=== PATIENT | male | born 1960 | race Caucasian/White ===

== ENCOUNTER → 2017-09-04 | Outpatient (CLI) | payer OTHER ==
[~2017-09-04] MED LIST: APR25 PO; CLOB-65 EXT; HYDR25TA4 PO; LISI40TA PO; METO50TA17 PO; MOME200A INH; NRV5 PO; Oxycodone/Acetaminophen PO; TEMA-79 PO
[2017-09-04 11:08] LABS: BASO ABS # 0.08 K/uL (0-0.2); EOS % 4.2 %; EOS ABS # 0.33 K/uL (0-0.5); HEMATOCRIT 44.4 % (42-52); HEMOGLOBIN 15.6 g/dL (14.0-18.0); IG# 0.02 K/uL (0.00-0.02); LYMPH ABS # 2.45 K/uL (1.2-3.4); MEAN CELL VOLUME 96.5 fL (80-100); MEAN CORPUSCULAR HEMOGLOBIN 33.9 pg (25-34); MEAN CORPUSCULAR HGB CONC 35.1 g/dl (32-36); MEAN PLATELET VOLUME 11.2 fL (7.4-10.4); MONO % 10.1 %; NEUT % 53.4 %; NEUT ABS # 4.22 K/uL (1.4-6.5); PLATELET COUNT 271 K/uL (130-400); RED CELL DISTRIBUTION WIDTH CV 12.6 % (11.5-14.5); RED CELL DISTRIBUTION WIDTH SD 44.2 fL (36.4-46.3)
[2017-09-04 11:32] LABS: ALBUMIN 3.4 gm/dl (3.4-5.0); ALT/SGPT 40 U/L (12-78); AST/SGOT 22 U/L (15-37); BLOOD UREA NITROGEN 15 mg/dl (7-18); CALCIUM 8.7 mg/dl (8.5-10.1); CARBON DIOXIDE 26 mmol/L (21-32); CHOLESTEROL 158 mg/dl (0-200); GLUCOSE 153 mg/dl (70-99); POTASSIUM 4.1 mmol/L (3.5-5.1); SODIUM 138 mmol/L (136-145)
[2017-09-04 11:35] LABS: ALKALINE PHOSPHATASE 96 U/L (45-117); TOTAL PROTEIN 7.8 gm/dl (6.4-8.2)
[2017-09-04 12:22] LABS: HEMOGLOBIN A1C 5.8 % (4.5-5.6)
== END | disposition home or self-care (01) ==
LOC: C.LABBC 07:04
PROVIDERS: ATTEND Internal Medicine
DX: G62.9 Polyneuropathy, unspecified (principal)

== ENCOUNTER 2017-10-08 11:27 | Emergency (ER) | payer OTHER ==
[~2017-10-08] VITALS: Ht 172.7 cm; Wt 117.0 kg
[2017-10-08 11:34] VITALS: Ht 172.7 cm; Wt 117.0 kg
[2017-10-08] MEDS ORDERED: AMLO-114 PO (11:55)
[2017-10-08] MEDS ORDERED: AMIT50TA3 PO (11:55)
[2017-10-08] MEDS ORDERED: GABA-113 PO (11:55)
[2017-10-08] MEDS ORDERED: PANT40TA PO (11:55)
[2017-10-08] MEDS ORDERED: ONDANSETRON INJ 2 MG/ML 2 ML VIAL IV STA (12:08)
[2017-10-08] MEDS ORDERED: ASPIRIN 81 MG CHEW PO STA (12:08)
[2017-10-08] MEDS ORDERED: SODIUM CHLORIDE 0.9% 1000ML 1,000 ML IV STA (12:08)
[2017-10-08] MEDS ORDERED: NITROGLYCERIN 0.4 MG SL PER TAB CHARGE SL PRN ×2 (12:15→14:30)
[2017-10-08 12:25] LABS: ALBUMIN 3.9 gm/dl (3.4-5.0); ALT/SGPT 46 U/L (12-78); AST/SGOT 26 U/L (15-37); BLOOD UREA NITROGEN 15 mg/dl (7-18); CALCIUM 9.1 mg/dl (8.5-10.1); CARBON DIOXIDE 23 mmol/L (21-32); GLUCOSE 142 mg/dl (70-99); LIPASE 117 U/L (73-393); SODIUM 137 mmol/L (136-145)
[2017-10-08 12:28] LABS: ALKALINE PHOSPHATASE 69 U/L (45-117); TOTAL PROTEIN 8.5 gm/dl (6.4-8.2)
--- NOTE | 2017-10-08 12:33 | DIAGNOSTIC IMAGING REPORT ---
SINGLE VIEW CHEST CLINICAL HISTORY: Atypical chest pain. FINDINGS: An AP, portable, upright chest radiograph is compared to study dated 05/17/2016 and correlated with chest CT dated 05/29/2016. The examination is degraded by portable technique, apical lordotic positioning, and patient rotation. The heart is markedly enlarged. The pulmonary vasculature is noncongested. Chronic interstitial thickening is similar to previous. Bibasilar atelectasis is observed. There is no evidence of superimposed airspace consolidation or large pleural effusion. No pneumothorax is seen. The skeletal structures are osteopenic. The bony thorax is grossly intact. IMPRESSION: Cardiomegaly with no acute cardiopulmonary abnormality. Electronically signed by: David Villegas M.D. 10/08/2017 12:31 PM Dictated Date/Time: 10/08/2017 12:30 PM
[2017-10-08 12:35] LABS: BASO ABS # 0.09 K/uL (0-0.2); EOS % 3.1 %; EOS ABS # 0.29 K/uL (0-0.5); HEMATOCRIT 46.4 % (42-52); HEMOGLOBIN 16.4 g/dL (14.0-18.0); IG# 0.02 K/uL (0.00-0.02); LYMPH % 29.2 %; LYMPH ABS # 2.71 K/uL (1.2-3.4); MEAN CELL VOLUME 95.3 fL (80-100); MEAN CORPUSCULAR HEMOGLOBIN 33.7 pg (25-34); MEAN CORPUSCULAR HGB CONC 35.3 g/dl (32-36); MEAN PLATELET VOLUME 10.5 fL (7.4-10.4); MONO ABS # 1.02 K/uL (0.11-0.59); NEUT % 55.5 %; NEUT ABS # 5.15 K/uL (1.4-6.5); PLATELET COUNT 282 K/uL (130-400); RED CELL DISTRIBUTION WIDTH CV 12.4 % (11.5-14.5); WHITE BLOOD COUNT 9.28 K/uL (4.8-10.8)
--- NOTE | 2017-10-08 12:44 | EMERGENCY ROOM VISIT NOTE ---
ED Visit Note First contact with patient: 11:56 Pt evaluated emergently due to possible unresponsive episode. Pt initially presented to me by ALLEN as possible cardiac evaluation vs anxiety reaction. I was called to the room due to pt appearing to be unresponsive. Pt noted to have mild tremor to b/l UE, however would still follow commands during this time. Pt with hypotension compared to prior and IVF started. Pt moved to A1 after notification of charge nurse regarding change condition. BP began to improve and pt emergently sent to CT for additional imaging of head and trunk. Concern for evolving dissection, aaa, cva, seizure. Upon return from CT to A1, pt noted to have asymmetric UE strength and left facial droop. Pt still would follow some commands but slow to open eyes. VS improved. ALLEN called to update me and upon my evaluation at bedside these findings were confirmed and Code Stroke called. CT's all negative for acute pathology. ALLEN discussed case with teleneurologist at bedside during which time pt's symptoms all resolved and he sat up and was talking. No tPA given and neurology advised CT angio head as a precaution as well as admission for additional cva evaluation. ALLEN discussed the case with the hospitalist. While awaiting CT angio, pt had another similar episode as prior, VS stable, this resolved spontaneously also. CT angio then shoed dural sinus thrombus and hospitalist advised transfer. While we were signing papers for transfer, computer system and network went down. Multiple papers filled out by hand to the best of our ability while pt awaiting transfer. Pt started on heparin drip. Pt and aware of all results and plan and were in agreement. Please refer to PA chart for additional details.
[2017-10-08] MEDS ORDERED: OPTIRAY 320 IV PRN ×2 (12:45→14:00)
--- NOTE | 2017-10-08 13:08 | DIAGNOSTIC IMAGING REPORT ---
CT HEAD WITHOUT CONTRAST (CT) CLINICAL HISTORY: Hypertension, unresponsive episode. COMPARISON STUDY: August 16, 2014 TECHNIQUE: Axial CT of the brain is performed from the vertex to the skull base. IV contrast was not administered for this examination. A dose lowering technique was utilized adhering to the principles of ALARA. CT DOSE: 729.78 mGycm FINDINGS: No intra or extra-axial mass lesions are visualized. There is no CT evidence of acute cortical infarction. There is no evidence of midline shift. There is no acute hemorrhage. No calvarial fractures are visualized. There is no evidence of pathologic ventricular dilatation. Postsurgical changes involve the left mastoid. There is left mastoid sclerosis. IMPRESSION: No acute intracranial findings Electronically signed by: Toby Duvall M.D. 10/08/2017 1:07 PM Dictated Date/Time: 10/08/2017 1:04 PM
--- NOTE | 2017-10-08 13:19 | DIAGNOSTIC IMAGING REPORT ---
CT ANGIOGRAM OF THE CHEST COMBO; CT ANGIOGRAM OF THE ABDOMEN AND PELVIS CLINICAL HISTORY: Hypertension. Unresponsive. Atypical chest pain. COMPARISON STUDY: Chest CT dated 05/29/2016. Abdominal CT dated 01/24/2011. Chest x-ray dated 10/08/2017. TECHNIQUE: Unenhanced CT scan of the chest is performed. Following the IV administration of 117 cc of Optiray 320, CT angiogram of the chest, abdomen, and pelvis was performed from the thoracic inlet to the proximal femora. Images are reviewed in the axial, sagittal, and coronal planes. 3-D MIPS images are created and assessed. IV contrast was administered without complication. A dose lowering technique was utilized adhering to the principles of ALARA. The examination is degraded by motion artifact as well as by streak artifact from the arms which could not be elevated above the chest or abdomen. CT DOSE: 1848.18 mGycm FINDINGS: CHEST: Thyroid: Imaged portions of the thyroid gland are normal in size and attenuation. Thoracic aorta: No intramural hematoma is seen on the unenhanced series. The thoracic aorta is normal in caliber and demonstrates bovine variant arch anatomy. No dissection is seen. The arch vessels are widely patent. Pulmonary vasculature: The pulmonary trunk is normal in caliber. There are no filling defects identified in the central pulmonary vessels to indicate pulmonary embolus. Note that this examination was not protocoled for evaluation of the pulmonary arteries. Heart: The heart is markedly enlarged and without pericardial effusion. Lungs and pleural spaces: Evaluation of lung parenchyma is significantly degraded by motion artifact. No airspace consolidation, pleural effusion, or pneumothorax is seen. The trachea and central airways are patent. There is elevation of the left hemidiaphragm with dependent atelectasis. Mediastinum: There is no mediastinal lymphadenopathy. Samantha: Clear. Axillae: There is no axillary lymphadenopathy. Bony thorax: The skeletal structures are osteopenic. No lytic or blastic bony lesions are identified. ABDOMEN AND PELVIS: Liver: The contrast-enhanced liver is enlarged, measuring 20.6 cm in length. The liver demonstrates diffusely diminished consistent with severe hepatic steatosis attenuation. Fatty sparing is seen adjacent to the gallbladder fossa. There is no intrahepatic biliary ductal dilatation. The main portal veins appear patent. Gallbladder: Unremarkable. Spleen: Normal in size and attenuation noting heterogeneous arterial phase enhancement. Pancreas: Unremarkable. Adrenal glands: Unremarkable. Kidneys: The contrast enhanced kidneys are normal in size and without hydronephrosis. The kidneys enhance symmetrically. A 2.9 cm cyst is noted in the right kidney. Abdominal aorta and iliac arteries: There is mild atherosclerotic calcification of the abdominal aorta which is normal in caliber. The abdominal aorta is widely patent. No dissection is seen. The iliac arteries are widely patent and normal in caliber. Major branches of the abdominal aorta: The celiac trunk, superior mesenteric, and inferior mesenteric arteries are widely patent. Hepatic arterial anatomy is conventional. The splenic artery is patent. Single bilateral renal arteries are patent. Bowel: There is moderate colonic diverticulosis without CT evidence of acute diverticulitis. No bowel obstruction is seen. The appendix is well-visualized and normal. Peritoneum: There is no intraperitoneal free air or abdominal ascites. There is a small fat-containing umbilical hernia. Lymphadenopathy: None. Pelvic viscera: The bladder, prostate, and seminal vesicles are normal as visualized. Skeletal structures: The skeletal structures are osteopenic. No lytic or blastic bony lesions are seen. IMPRESSION: 1. Significantly streak and motion compromised examination. 2. There is no aneurysm or dissection seen involving the thoracic or abdominal aorta. 3. Cardiomegaly. 4. There is no airspace consolidation or pleural effusion. 5. There are no acute infectious or inflammatory findings in the abdomen or pelvis. 6. Hepatomegaly and severe hepatic steatosis. 7. Unremarkable CT angiogram of the major branches of the abdominal aorta. 8. Moderate colonic diverticulosis without CT evidence of acute diverticulitis. 9. Additional findings as above. Electronically signed by: David Villegas M.D. 10/08/2017 1:17 PM Dictated Date/Time: 10/08/2017 1:06 PM
[2017-10-08 13:38] LABS: PTT PATIENT 25.4 SECONDS (21.0-31.0)
[2017-10-08] MEDS ORDERED: SODIUM CHLORIDE 0.9% 1000ML 1,000 ML IV SCH (14:18)
--- NOTE | 2017-10-08 14:25 | DIAGNOSTIC IMAGING REPORT ---
HEAD ANGIO WITH CONTRAST CLINICAL HISTORY: 57 years-old Male presenting with stroke symptoms, high blood pressure, chest contractions/spasm. TECHNIQUE: Multidetector CT angiography of the head was performed after the administration of intravenous contrast. 3-D volumetric and/or maximum intensity projection (MIP) images were subsequently reconstructed for review. IV contrast: 117 mL of Optiray 320. A dose lowering technique was used consistent with the principles of ALARA (as low as reasonably achievable). COMPARISON: Noncontrast head CT from 10/08/2017 and CTA head from 08/16/2014. CT DOSE (mGy.cm): The estimated cumulative dose is 410.93 mGycm. FINDINGS: Neuroscientist topogram: Unremarkable. Anterior circulation: Intracranial portions of the internal carotid arteries patent to the level of the termini. Anterior and middle cerebral arteries patent. Anterior communicating artery patent. Posterior circulation: Codominant vertebral arteries. Intradural portions of the vertebral arteries patent. Posterior inferior cerebellar arteries patent. Basilar artery patent. Anterior inferior cerebellar arteries poorly visualized. Superior cerebellar and posterior cerebral arteries patent. Right posterior communicating artery patent. Left posterior communicating artery hypoplastic or aplastic. Dural venous sinuses: Apparent filling defect in the superior sagittal sinus (series 2 image 112), likely a pacchionian granulation and unchanged from prior. However nonopacification of the distal left transverse sinus, left sigmoid sinus, and left jugular bulb concerning for thrombosis. The remaining dural venous sinuses are well opacified. No evidence of a cortical vein or deep vein thrombosis. IMPRESSION: 1. No evidence of aneurysm, focal vessel occlusion, or significant stenosis of the intracranial arteries. 2. 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 The report will be called/faxed according to standard departmental protocol. Electronically signed by: Bib Souza M.D. 10/08/2017 2:24 PM Dictated Date/Time: 10/08/2017 2:16 PM
[2017-10-08] MEDS ORDERED: ZOLPIDEM TARTRATE 5 MG TAB PO PRN (14:30)
[2017-10-08] MEDS ORDERED: ACETAMINOPHEN 325 MG TAB PO PRN (14:30)
[2017-10-08] MEDS ORDERED: HEPARIN 25000 UNIT/500 ML D5W ONE (15:07)
[2017-10-08] MEDS ORDERED: HEPARIN SOD 5000 UNIT/0.5 ML CARP ONE (15:07)
[2017-10-08 15:13] VITALS: TEMP 36.9
--- NOTE | 2017-10-08 15:16 | Medical Consult ---
Consultation Date of Consultation: Oct 08, 2017. Attending Physician: History of Present Illness Mr. Dayron Inman is a 57 year old gentleman who presented to [facility] with complaints of chest pain. Patient has histomry significant for hyperntesion and prediabetes (Hgb A1c 5.8, as of Aug 2017). Yesterday, patient experienced a brief episode of shortness of breath which was self- limited. However, Mr. Inman woke up this morning around 0700 with acute chest pain of sudden onset. Pain tends to have a waxing waning presentation. Chest pain is predominantly midsternal and radiates to the left side of the chest wall and up to the left-sided jaw and down left arm. Severity of pain ranges from 4-6 out of 10. No aggravating or alleviating factors. Associated symptoms include intermittent nausea and shortness of breath but denies vomiting , palpitation, headaches, vision changes, syncope or diaphoresis. No recent travel or sick contacts. In the ED, patient rec'd aspirin and nitroglycerin and became unresponsive. There was no loss of pulse and was able to regain consciousness quickly. While Mr. Inman was being evaluated by Admitting Hospitalist, Head angiography report finalized and findings were indicative of dural venous sinus thrombosis in the distal left transverse, left sigmoid sinus and left jugular bulb. Past Medical/Surgical History Hypertension Prediabetes (Hgb A1c Family History Mother: Diabetes mellitus type II Father: Hypertension Pt endorses CVA Hx with other family members Social History Smoking Status: Former Smoker Drug Use: none Marital Status: Housing Status: lives with significant other Occupation Status: employed Allergies Coded Allergies: Penicillins (Verified Allergy, Severe, "ALMOST ", 08/16/14) Current Inpatient Medications Current Inpatient Medications Medications (Trade) Dose Ordered Sig/Raghav Route Start Time Stop Time Status Last Admin Dose Admin Nitroglycerin (Nitrostat Tab) 0.4 mg Q5M PRN SL 10/08/17 12:15 11/07/17 12:14 10/08/17 12:26 0.4 MG Ioversol (Optiray 320) 100 ml UD PRN IV 10/08/17 12:45 10/12/17 12:44 Ioversol (Optiray 320) 125 ml UD PRN IV 10/08/17 14:00 10/12/17 13:59 Heparin Sodium (Porcine) (Heparin Sq 5000 Unit/0.5ml) 5,000 unit Q8 SQ 10/08/17 22:00 11/07/17 21:59 UNV Sodium Chloride 1,000 ml @ 80 mls/hr [id number] IV 10/08/17 14:18 11/07/17 14:17 UNV Acetaminophen (Tylenol Tab) 650 mg Q4H PRN PO 10/08/17 14:30 11/07/17 14:29 UNV Zolpidem Tartrate (Ambien Tab) 5 mg HSZ PRN PO 10/08/17 14:30 11/07/17 14:29 UNV Nitroglycerin (Nitrostat Tab) 0.4 mg UD PRN SL 10/08/17 14:30 11/07/17 14:29 UNV Aspirin (Ecotrin Tab) 81 mg QAM PO 10/09/17 09:00 11/08/17 08:59 UNV Review of Systems Constitutional: No fever, No chills, No sweats, No weight loss, No weakness, No fatigue, No problem reported Eyes: No worsening of vision, No eye pain, No redness, No discharge, No diplopia, No problem reported ENT: No hearing loss, No unusual epistaxis, No nasal symptoms, No sore throat, No tinnitus, No dental problems, No trouble swallowing, No problem reported Respiratory: + wheezing, + shortness of breath Cardiovascular: + chest pain Abdomen: No pain, No nausea, No vomiting, No diarrhea, No constipation, No GI bleeding, No problem reported Musculoskeletal: No joint pain, No muscle pain, No swelling, No calf pain, No problem reported Neurologic: + weakness Endocrine: No fatigue, No excessive thirst, No excessive urination, No problem reported Hematologic / Lymphatic: No abnormal bleeding/bruising, No clotting problems, No swollen lymph nodes, No night sweats, No problem reported Integumentary: No rash, No itch, No new/changing skin lesions, No color change , No bleeding, No problem reported Physical Exam Date Time Temp Pulse Resp B/P (MAP) Pulse Ox O2 Delivery O2 Flow Rate FiO2 10/08/17 14:27 100 15 98 10/08/17 14:20 149/113 10/08/17 14:18 162/100 10/08/17 14:17 96 17 97 10/08/17 13:57 104 18 99 10/08/17 13:51 161/106 10/08/17 13:47 98 17 97 10/08/17 13:41 145/110 10/08/17 13:40 120/97 10/08/17 13:39 100 16 120/97 97 Nasal Cannula 2.0 10/08/17 13:37 96 15 96 10/08/17 13:30 149/97 10/08/17 13:27 95 14 97 10/08/17 13:17 107 15 98 10/08/17 13:15 130/111 10/08/17 13:07 95 14 98 10/08/17 13:02 137/103 10/08/17 12:40 95 Nasal Cannula 3.0 10/08/17 12:40 111 20 159/128 88 Room Air 10/08/17 12:37 104 25 10/08/17 12:35 159/128 10/08/17 12:27 135 19 90 10/08/17 12:17 107 16 93 10/08/17 12:08 111 10/08/17 12:07 112 22 94 10/08/17 11:57 112 16 93 10/08/17 11:47 108 20 95 10/08/17 11:35 162/135 10/08/17 11:34 37.0 99 20 162/135 96 General Appearance: WD/WN, + mild distress Head: normocephalic, atraumatic Eyes: PERRL, EOMI Neck: supple Respiratory/Chest: chest non-tender, no respiratory distress, no accessory muscle use, + pertinent finding (mild wheezing bilaterally) Cardiovascular: regular rate, rhythm, no edema, no gallop, no JVD, no murmur Abdomen/GI: normal bowel sounds, non tender, soft, no organomegaly Extremities/Musculoskelatal: no calf tenderness, no pedal edema, + pertinent finding (symmetrical muscle bulk bilaterally but exhibiting left sided weakness on upper and lower extremities) Neurologic/Psych: 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, alert, oriented x 3, + pertinent finding (left sided hemiparesis; sensory modalities are intact) Skin: normal color, warm/dry, no rash Laboratory Results Last 24 Hours Test 10/08/17 11:40 10/08/17 12:16 10/08/17 13:10 White Blood Count 9.28 K/uL Red Blood Count 4.87 M/uL Hemoglobin 16.4 g/dL Hematocrit 46.4 % Mean Corpuscular Volume 95.3 fL Mean Corpuscular Hemoglobin 33.7 pg Mean Corpuscular Hemoglobin Concent 35.3 g/dl Platelet Count 282 K/uL Mean Platelet Volume 10.5 fL Neutrophils (%) (Auto) 55.5 % Lymphocytes (%) (Auto) 29.2 % Monocytes (%) (Auto) 11.0 % Eosinophils (%) (Auto) 3.1 % Basophils (%) (Auto) 1.0 % Neutrophils # (Auto) 5.15 K/uL Lymphocytes # (Auto) 2.71 K/uL Monocytes # (Auto) 1.02 K/uL Eosinophils # (Auto) 0.29 K/uL Basophils # (Auto) 0.09 K/uL RDW Standard Deviation 43.0 fL RDW Coefficient of Variation 12.4 % Immature Granulocyte % (Auto) 0.2 % Immature Granulocyte # (Auto) 0.02 K/uL Sodium Level 137 mmol/L Potassium Level 4.0 mmol/L Chloride Level 105 mmol/L Carbon Dioxide Level 23 mmol/L Anion Gap 9.0 mmol/L Blood Urea Nitrogen 15 mg/dl Creatinine 1.30 mg/dl Est Creatinine Clear Calc Drug Dose 78.8 ml/min Estimated GFR () 70.7 Estimated GFR (Non- 61.0 BUN/Creatinine Ratio 11.9 Random Glucose 142 mg/dl Calcium Level 9.1 mg/dl Total Bilirubin 0.4 mg/dl Direct Bilirubin < 0.1 mg/dl Aspartate Amino Transf (AST/SGOT) 26 U/L Alanine Aminotransferase (ALT/SGPT) 46 U/L Alkaline Phosphatase 69 U/L Total Protein 8.5 gm/dl Albumin 3.9 gm/dl Lipase 117 U/L Bedside Troponin I < 0.030 ng/ml Prothrombin Time 10.5 SECONDS Prothromb Time International Ratio 1.0 Activated Partial Thromboplast Time 25.4 SECONDS Partial Thromboplastin Ratio 1.0 Assessment & Plan O.R. Snchez 57/M requires transfer to another facility with Neurosurgery services. Patient presented with an Hx that was suggestive of unstable angina requiring further cardiac evaluation. EKG obtained in the emergency department shows evidence of right bundle branch block but no ST changes that would be indicative of ischemia. First set of troponins are negative. Patient was given ASA and NTG but became briefly unresponsive but never lost pulse and regained consciousness quickly. However, on physical examination patient is exhibiting neurological deficits. Cranial nerves are intact but is having left-sided hemiparesis. Sensory modalities are equal and intact. CT angiograph of the head shows dural thrombosis. Pt will begin AC therapy in ED and will be transferred to [facility].
[2017-10-08] MEDS ORDERED: IV FLUIDS COMPLETED PRN (16:00)
[2017-10-08] MEDS ORDERED: LORAZEPAM 2 MG/ML 1 ML VIAL IV STA (16:06)
[2017-10-08 16:09] LABS: HEMOGLOBIN A1C 5.9 % (4.5-5.6)
[2017-10-08 17:01] VITALS: BP 136/106; PULSE 118; O2SAT 96
[2017-10-08] MEDS ORDERED: HEPARIN 25,000 UNIT/500ML D5W 500 ML IV SCH (17:15)
[2017-10-08] MEDS ORDERED: ACETAMINOPHEN 1000 MG/100 ML IV IV ONE (17:34)
[2017-10-08] MEDS ORDERED: LORAZEPAM 2 MG/ML 1 ML VIAL ONE (21:20)
[2017-10-08] MEDS ORDERED: HEPARIN SOD 5000 UNIT/0.5 ML CARP SQ SCH (22:00)
[2017-10-09] MEDS ORDERED: ASPIRIN 81 MG ECTAB PO SCH (09:00)
--- NOTE | 2017-10-09 12:48 | EMERGENCY ROOM VISIT NOTE ---
ED Visit Note First contact with patient: 11:56 Chief Complaint: Chest pain. History of Present Illness: Mr. Lara is a 57 year-old male who ambulates into the ED accompanied by his complaining of chest pain. Historically patient reports hypertension, prediabetes. Patient for bed last night he had some mild shortness of breath. He slept all night and reports he was awoken from sleep at approximately 7 AM, approximately 4.5 hours ago with an acute onset of chest pain. He reports initially his pain was intermittent but over the last hour it has been constant. He places his discomfort in the left sternal border area. He has described his discomfort as spasm but also sharp and stabbing. He currently rates his discomfort 5/10. He reports radiation into the left lateral neck and into the left upper extremity extending down to the level of the elbow. He has not identified any aggravating or alleviating factors related to the pain. Associated with his pain he has been nauseated but has not vomited and still feels short of breath. Additionally he does report that his left upper extremity and left side of his face feels "weird", but has difficulty explaining what weird means. does report that a year ago he was seen in this emergency department after a closed head injury and the patient felt he was having stroke symptoms but his CT was negative. Patient denies any fevers, chills, skin eruptions, skin color changes, headache , dizziness, lightheadedness, upper respiratory tract symptoms, cough, wheezing , palpitations, orthopnea, dependent edema, previous clots, claudication, cramping, recent surgery/inactivity/extended travel, back/flank pain. While in the emergency room patient had an acute onset of altered levels of consciousness. 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 Additionally she reports he is currently being evaluated for peripheral vision loss. Review of Systems: As noted above in history of present illness. All body systems were reviewed and found to be negative as noted above. Past Medical History: As previously noted, dermatitis, asthma, lower extremity neuropathy, unspecified surgeries to the ears, nose, foot and a lipoma removal. Current Medications: Medications Dose Route/Sig Max Daily Dose Days Date Category Neurontin (Gabapentin) 300 Mg Cap 300 Mg PO TID 10/08/17 Reported Norvasc (Amlodipine Besylate) 10 Mg Tab 10 Mg PO DAILY 10/08/17 Reported Amitriptyline Hcl 50 Mg Tab 75 Mg PO DAILY 10/08/17 Reported Protonix (Pantoprazole Sodium) 40 Mg Tab 40 Mg PO DAILY 10/08/17 Reported Metoprolol Tartrate 50 Mg Tab 50 Mg PO BID 08/17/14 Rx Zestril (Lisinopril) 40 Mg Tab 40 Mg PO DAILY 12/13/13 Reported Allergies to Medications: Penicillin. Social History: Patient is currently employed; he feels safe in his home environment; he admits to using smokeless tobacco and denies alcohol use. Physical Examination: Vital Signs: Date Time Temp Pulse Resp B/P (MAP) Pulse Ox O2 Delivery O2 Flow Rate FiO2 10/08/17 17:01 118 18 136/106 96 Nasal Cannula 2.0 10/08/17 16:45 108 18 166/116 96 Nasal Cannula 2.0 10/08/17 16:32 117 18 155/116 96 Nasal Cannula 2.0 10/08/17 16:17 115 18 175/117 94 Nasal Cannula 2.0 10/08/17 15:31 108 18 169/132 96 Nasal Cannula 2.0 10/08/17 15:13 36.9 115 18 165/128 98 Nasal Cannula 2.0 10/08/17 14:27 100 15 98 10/08/17 14:20 149/113 10/08/17 14:18 162/100 10/08/17 14:17 96 17 97 10/08/17 13:57 104 18 99 10/08/17 13:51 161/106 10/08/17 13:47 98 17 97 10/08/17 13:41 145/110 10/08/17 13:40 120/97 10/08/17 13:39 100 16 120/97 97 Nasal Cannula 2.0 10/08/17 13:37 96 15 96 10/08/17 13:30 149/97 10/08/17 13:27 95 14 97 10/08/17 13:17 107 15 98 10/08/17 13:15 130/111 10/08/17 13:07 95 14 98 10/08/17 13:02 137/103 10/08/17 12:40 95 Nasal Cannula 3.0 10/08/17 12:40 111 20 159/128 88 Room Air 10/08/17 12:37 104 25 10/08/17 12:35 159/128 10/08/17 12:27 135 19 90 10/08/17 12:17 107 16 93 10/08/17 12:08 111 10/08/17 12:07 112 22 94 10/08/17 11:57 112 16 93 10/08/17 11:47 108 20 95 10/08/17 11:35 162/135 10/08/17 11:34 37.0 99 20 162/135 96 GENERAL: 57-year-old male in moderate distress due to pain and symptoms, nontoxic-appearing, afebrile and hemodynamically stable. Patient is anxious and tearful at times. NEUROLOGICAL: Awake, alert and oriented to person, place and time. Answering questions appropriately and following commands. Good hand eye coordination. Cranial nerves II through XII grossly intact. SKIN: Warm, dry and pink. No soft tissue eruptions or trauma noted. HEENT: Atraumatic and normocephalic. Pupils are dilated from a ophthalmic examination today. Sclera white and conjunctiva pink. Oral cavity moist and pink. Pharynx is nonerythematous or edematous. Speech normal. No lymphadenopathy. Trachea midline. No jugular venous distention. No carotid bruits. BACK: No tenderness over the bony spine. No CVA tenderness. THORAX: Lungs sounds are clear to auscultation and equal bilaterally with symmetrical chest wall. No wheezing, rales or rhonchi. No crepitus, tenderness , subcutaneous air or deformities noted. HEART: Regular rate and rhythm. No gallops, rubs or murmurs are appreciated. No lifts, heaves or thrills. PMI is not displaced. ABDOMEN: Protuberant, soft and nontender. Positive bowel sounds in all quadrants. No palpable masses, guarding, rigidity or organomegaly. EXTREMITIES: Moves all extremities well on command and with purpose. Distal pulses intact. No dependent edema or calf tenderness/cords. On reevaluation for his possible stroke he had decreased sensations bilaterally which was much more pronounced on the left lower extremity; because of his neuropathy this was difficult to assess if it was a new finding. Leg lifts were performed and patient had difficulty keeping his legs elevated and they were easily pushed down to the bed. ED Course: Patient is assessed as noted above. Laboratory Testing: Test 10/08/17 11:40 10/08/17 12:16 10/08/17 13:10 Range/Units White Blood Count 9.28 4.8-10.8 K/uL Red Blood Count 4.87 4.7-6.1 M/uL Hemoglobin 16.4 14.0-18.0 g/dL Hematocrit 46.4 42-52 % Mean Corpuscular Volume 95.3 80-100 fL Mean Corpuscular Hemoglobin 33.7 25-34 pg Mean Corpuscular Hemoglobin Concent 35.3 32-36 g/dl Platelet Count 282 130-400 K/uL Mean Platelet Volume 10.5 7.4-10.4 fL Neutrophils (%) (Auto) 55.5 % Lymphocytes (%) (Auto) 29.2 % Monocytes (%) (Auto) 11.0 % Eosinophils (%) (Auto) 3.1 % Basophils (%) (Auto) 1.0 % Neutrophils # (Auto) 5.15 1.4-6.5 K/uL Lymphocytes # (Auto) 2.71 1.2-3.4 K/uL Monocytes # (Auto) 1.02 0.11-0.59 K/uL Eosinophils # (Auto) 0.29 0-0.5 K/uL Basophils # (Auto) 0.09 0-0.2 K/uL RDW Standard Deviation 43.0 36.4-46.3 fL RDW Coefficient of Variation 12.4 11.5-14.5 % Immature Granulocyte % (Auto) 0.2 % Immature Granulocyte # (Auto) 0.02 0.00-0.02 K/uL Sodium Level 137 136-145 mmol/L Potassium Level 4.0 3.5-5.1 mmol/L Chloride Level 105 98-107 mmol/L Carbon Dioxide Level 23 21-32 mmol/L Anion Gap 9.0 3-11 mmol/L Blood Urea Nitrogen 15 7-18 mg/dl Creatinine 1.30 0.60-1.40 mg/dl Est Creatinine Clear Calc Drug Dose 78.8 ml/min Estimated GFR () 70.7 Estimated GFR (Non- 61.0 BUN/Creatinine Ratio 11.9 10-20 Random Glucose 142 70-99 mg/dl Estimated Average Glucose 123 mg/dl Hemoglobin A1c 5.9 4.5-5.6 % Calcium Level 9.1 8.5-10.1 mg/dl Total Bilirubin 0.4 0.2-1 mg/dl Direct Bilirubin < 0.1 0-0.2 mg/dl Aspartate Amino Transf (AST/SGOT) 26 15-37 U/L Alanine Aminotransferase (ALT/SGPT) 46 12-78 U/L Alkaline Phosphatase 69 45-117 U/L Total Protein 8.5 6.4-8.2 gm/dl Albumin 3.9 3.4-5.0 gm/dl Lipase 117 73-393 U/L Bedside Troponin I < 0.030 0-0.045 ng/ml Prothrombin Time 10.5 9.0-12.0 SECONDS Prothromb Time International Ratio 1.0 0.9-1.1 Activated Partial Thromboplast Time 25.4 21.0-31.0 SECONDS Partial Thromboplastin Ratio 1.0 Chest X-Rays: EKG: Was read by myself and reviewed with Dr. Phillips; shows sinus tachycardia with a ventricular rate of 118 bpm. Left atrial enlargement. No acute ischemic changes. This was compared to a previous from August 2014 and at that time there was an incomplete right bundle branch block now he is experiencing a complete right bundle branch block. Chest x-ray: Was read by myself and the radiologist and found marked cardiomegaly of but no acute infiltrates, effusions or pneumothorax.. Head CT: Was reviewed by myself and read by the radiologist showing no acute intracranial abnormalities. Aortic Dissection CT: Was reviewed by myself and read by the radiologist and shows no aneurysm or dissection of the thoracic or abdominal aorta, cardiomegaly , no acute infectious or inflammatory findings in the abdomen or pelvis, hepatomegaly and severe hepatic steatosis, unremarkable CT angiogram of the major branches of the abdominal aorta, moderate colonic diverticulosis without diverticulitis, no filling deficits indicating pulmonary embolism, markedly enlarged heart without pleural effusion. Patient was hydrated with normal saline and he initially received 324 mg of aspirin and 1 0.4 nitroglycerin tablets sublingually Head CTA: Was reviewed by myself and read by the radiologist showing no evidence of aneurysm, focal vessel occlusion or significant stenosis. A dural venous sinus thrombosis was suspected in the left distal transverse sinus, left sigmoid sinus and left jugular bulb. Patient was reevaluated multiple times during his stay in the emergency department. On his first neurological change he was able to open his eyes to verbal stimuli and stick out his tongue and a left-sided facial droop. Was noted that he had increased tremors of all the extremities but not the body. Was also noted at that time he was slightly diaphoretic. When he returned from CT patient was now obtunded and minimally responds to a sternal rub. It was also noted while in the CT scan department he was incontinent of urine. At that time a stroke alert was initiated. After reviewing the case and consultation with the neurologist at [facility] it was recommended that a CTA pending the EEG was performed. Please note CTA results above. Patient neurological changes at this time included altered mental status and tremors lasted for approximately 20 minutes. After 20 minutes they completely self resolved and patient was his normal self. Patient's case was consulted with Dr. Guo, hospitalist, for medical observation/admission. After patient's CTA returned it was felt that there could be the need for neurosurgical intervention and it was recommended that the patient be transferred. [facility] was consulted and I spoke with Dr. Yap, neurosurgery, and patient was accepted in transfer. While waiting for ambulance transport once again I was called back to the emergency department when the patient started complaining of return of facial numbness and it was noted that he had his eyes closed and were diaphoretic. He was able to open his mouth and put out his tongue. On observation he had worsening tremors of his extremities but no incontinence. At this time patient was given a milligram of Ativan IV and within 3 minutes he was awake and alert. He reports resolution of facial numbness and there were no additional tremors. Patient was continuously monitored by myself and nursing staff. Prior to discharge she had some return of tremors in all the extremities and was given an additional 0.5 mg of Ativan which resolved the tremors. Clinical Impression: Dural venous sinus thrombosis. Altered levels of consciousness. Chest pain. Decision-Making: Initially my differential diagnosis I considered acute coronary syndrome, pericarditis, thoracic and abdominal aneurysms, CVA, TIA, pulmonary embolism and other causes. Disposition and Plan: Patient transferred to [facility] via ALS ambulance for definitive care and treatment.
== END 2017-10-08 22:30 | disposition short-term general hospital (02) ==
LOC: C.EDB 11:28 → CANBEDREQ 14:55 → C.EDA 22:30
DX: G08 Intracranial and intraspinal phlebitis and thrombophlebitis (principal); R41.82 Altered mental status, unspecified; R07.9 Chest pain, unspecified; I10 Essential (primary) hypertension; R73.03 Prediabetes; J45.909 Unspecified asthma, uncomplicated; G57.90 Unspecified mononeuropathy of unspecified lower limb; Z79.899 Other long term (current) drug therapy; Z88.0 Allergy status to penicillin; F17.220 Nicotine dependence, chewing tobacco, uncomplicated

== ENCOUNTER → 2017-10-31 | Outpatient (CLI) | payer OTHER ==
[~2017-10-31] MED LIST changes: +AMIT50TA3 PO; +AMLO-114 PO; -APR25 PO; -CLOB-65 EXT; +GABA-113 PO; -HYDR25TA4 PO; -MOME200A INH; -NRV5 PO; -Oxycodone/Acetaminophen PO; +PANT40TA PO; -TEMA-79 PO
[2017-10-31 10:33] LABS: HEMATOCRIT 45.1 % (42-52); HEMOGLOBIN 15.4 g/dL (14.0-18.0); MEAN CELL VOLUME 96.6 fL (80-100); MEAN CORPUSCULAR HGB CONC 34.1 g/dl (32-36); MEAN PLATELET VOLUME 10.9 fL (7.4-10.4); PLATELET COUNT 279 K/uL (130-400); RED CELL DISTRIBUTION WIDTH CV 12.6 % (11.5-14.5); RED CELL DISTRIBUTION WIDTH SD 44.1 fL (36.4-46.3); WHITE BLOOD COUNT 8.87 K/uL (4.8-10.8)
[2017-10-31 10:44] LABS: ALBUMIN 3.4 gm/dl (3.4-5.0); ALT/SGPT 40 U/L (12-78); AST/SGOT 21 U/L (15-37); BLOOD UREA NITROGEN 18 mg/dl (7-18); CARBON DIOXIDE 29 mmol/L (21-32); CHOLESTEROL 158 mg/dl (0-200); GLUCOSE 162 mg/dl (70-99); POTASSIUM 3.8 mmol/L (3.5-5.1); SODIUM 137 mmol/L (136-145)
[2017-10-31 10:47] LABS: ALKALINE PHOSPHATASE 76 U/L (45-117); TOTAL PROTEIN 7.6 gm/dl (6.4-8.2)
[2017-10-31 11:16] LABS: HEMOGLOBIN A1C 6.1 % (4.5-5.6)
== END | disposition home or self-care (01) ==
LOC: C.LABBC 07:24
PROVIDERS: ATTEND Internal Medicine
DX: G62.9 Polyneuropathy, unspecified (principal); I10 Essential (primary) hypertension

== ENCOUNTER 2023-02-11 19:32 | Inpatient (IN) ==
--- NOTE | 2023-02-11 19:56 | Emergency Department Note ---
Impression & Plan Hyperosmolar hyperglycemic state (HHS) ADMIT ED Provider Note HPI: The patient is a 62-year-old gentleman who presents emergency department with increasing weakness over the past several days. Patient's at the bedside states that over the past 2 weeks he has felt somewhat ill. She states that he had previously been diagnosed with "prediabetes" but he is not currently on any insulin. Blood sugar obtained in triage returned as "high". On my initial assessment the patient is very listless appearing but he is alert to verbal stimuli, he is oriented to place and time. On arrival here to the ED the patient is mildly hypertensive at 152/89, he is otherwise hemodynamically stable and saturating well on room air. Patient is afebrile on arrival ROS: - Per HPI Differential Diagnosis: Diabetic ketoacidosis, hyperosmolar hyperglycemic state, sepsis, amongst other potential pathologies. *Outpatient medications and allergy history reviewed. *Pertinent external medical records reviewed. PE: General: Alert to verbal stimuli, listless appearing HEENT: Normocephalic, trachea midline Eyes: Extraocular eye movement is intact, no scleral erythema Pulmonary: Clear to auscultation bilaterally, slight tachypnea noted on exam, no wheezing Cardio: Regular rate and rhythm GI: Abdomen is soft to palpation : No suprapubic tenderness MSK: No evidence of trauma or malformation of the extremities, no edema Skin: No evidence of rash Neuro: Alert to verbal stimuli, patient is oriented to place and time, patient follows commands appropriately, patient does not have any focal deficits and ambulates all extremities spontaneously Psychiatric: Cooperative monitor worker: (As interpreted by myself): - An order was placed for continuous cardiac monitoring - Patient was noted to be in sinus rhythm with a rate of 80 EKG: (As interpreted by myself): Rate: 84 Rhythm: Normal sinus rhythm Intervals: QRS 140 ms, otherwise within normal limits ST changes: No ST elevation Time: 2002 Interventions provided in ED: -IV fluid bolus, insulin drip Medical Decision Making: Shortly after the patient arrived IV was established, lab work obtained, [id number] glucose on arrival was read as "high". Work returned shows no leukocytosis, hemoglobin is normal, platelet count is normal, venous blood gas shows a normal pH at 7.38, CMP shows evidence of pseudohyponatremia at 119 with blood sugar at 807. Potassium is normal at 4.7. BUN 33, creatinine slightly elevated at 1.48, lactic acid is normal at 1.9, troponin is negative. Pr ocalcitonin is low. Urinalysis shows 3+ glucose and 1+ ketones. Serum bicarbonate level is normal at 25. Chest x-ray does not show any evidence of acute disease per my interpretation. EKG does not show any acute ischemic changes. Overall patient's presentation is consistent with HHS, patient is not currently on any insulin therapy. He is alert and oriented, overall I do feel that his symptoms are secondary to HHS and I do not feel an acute intracranial process is ongoing as he has no focal deficits and he is alert and oriented. CT imaging of the head therefore not ordered. He was ordered an insulin drip following the results of his lab work, on my reassessment he remains hemodynamically stable and remains alert and oriented. I discussed all the above findings with the patient and his at the bedside, at this time they are in agreement for admission. [facility] hospitalist service was consulted for admission. Consultants: Hospitalist, Dr. Quigley Disposition discussion held by myself with: Patient and at bedside * CRITICAL CARE TIME: ( 55 ) minutes -Time spent independent of any procedures and management of patient with HHS requiring initiation of insulin drip and aggressive fluid resuscitation, time spent at the bedside in discussion with family, interpretation of diagnostic studies, consultation with other healthcare providers and arrangement of admission. Diagnosis: 1. HHS, acute 2. Elevated creatinine, mild 3. Glucosuria, acute 4. 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 Chronic back pain Gastroesophageal reflux disease Hearing deficit pt is very [place]--reads lips-- also helps him understand History of COVID-19 01/2022--mild symptoms, no symptoms now HTN (hypertension) Insomnia Migraines Osteoarthritis Peripheral neuropathy Psoriasis Restless leg syndrome Rosacea Sleep apnea CPAP Surgical History History of adenoidectomy History of colonoscopy History of ear surgery History of esophagogastroduodenoscopy (EGD) History of knee surgery History of myringotomy History of tonsillectomy History of tooth extraction Family History Mother Family history of diabetes mellitus Father Family history of diabetes mellitus Myocardial infarction Sister Breast cancer Brother Breast cancer Uncle Colorectal cancer Other No family history of adverse response to anesthesia Denies family history of Ovarian cancer Prostate cancer Social History Smoking Status: Current every day smoker Tobacco Type: Smokeless Tobacco (Dip or Chew) Second Hand Exposure: No; Do You Dip or Chew Tobacco: Yes (chews (advised on policy)); Hx Alcohol Use: Yes (very rarely) Hx Substance Use: No Preferred Language: [place] Islander Communication Ability: Effective Paper Coater Required: No Beliefs That Will Affect Care: None marital status: Current Living Situation: Spouse current occupational status: employed Feels Safe at Home: Yes Childhood Exposure to Second-Hand Smoke: Yes Dental Care, Regularly: Yes Seatbelt Use: always Sunscreen Use: Yes Assistive Devices: CPAP, Denture - Upper, Denture - Lower and Glasses Allergies Allergies Allergy/AdvReac Type Severity Reaction Status Date / Time Penicillins Allergy Severe Anaphylaxis Verified 02/11/23 15:48 Home Meds Home Medications Medication Instructions Recorded Confirmed albuterol sulfate 90 mcg/actuation 2 puff inhalation QID PRN 06/22/18 02/11/23 aerosol inhaler (Ventolin HFA) Shortness Of Breath desonide 0.05 % topical ointment 1 appln topical BID PRN ud 01/18/20 02/11/23 fluocinolone 0.01 % topical body 1 appln topical .COMPLEX PRN ud 01/18/20 02/11/23 oil betamethasone dipropionate 0.05 % 1 applic topical DAILY PRN Rash 11/13/22 02/11/23 lotion Previous Rx's Medication Instructions Recorded metoprolol tartrate 50 mg tablet 75 mg PO BID 90 days #270 tabs 03/22/22 amlodipine 10 mg tablet 10 mg PO QAM #90 tabs 06/18/22 lisinopril 40 mg tablet 40 mg PO QAM #90 tabs 06/18/22 hydrochlorothiazide 25 mg tablet 25 mg PO QAM #90 tabs 10/11/22 venlafaxine 75 mg capsule,extended 225 mg PO QPM #270 caps 10/11/22 release 24 hr gabapentin 300 mg capsule 300 mg PO TID #270 caps 01/06/23 omeprazole 40 mg capsule,delayed 40 mg PO QAM #90 caps 01/06/23 release prednisone 10 mg tablets in a dose 10 mg PO . DIRECTED #21 ea 02/11/23 pack Results & Data (ED) Vital Signs Vital Signs - 24 hr 02/11/23 19:36 02/11/23 20:18 Temperature 36.9 C Temperature Source Temporal Artery Scan Pulse Rate 92 H Pulse Rate [Bilateral] 78 Pulse Rhythm Regular Pulse Strength Normal Respiratory Rate 19 28 H Respiratory Effort / Characteristics Non-Labored Spontaneous Respiratory Depth Normal Respiratory Pattern Regular Blood Pressure 152/89 H Blood Pressure Mean 110 Blood Pressure Position Sitting Pulse Oximetry 95 99 Oxygen Delivery Method Room Air Room Air Sepsis Recent Fever Within 48 Hours No Sepsis New/Unexplained Change in Mental Status N/A Sepsis Action Taken by Nursing No Action Required Laboratory Data 02/11/23 Unknown 02/11/23 Unknown Lab Results 02/11/23 02/11/23 02/11/23 Range/Units 19:57 20:20 Unknown WBC 7.44 (4.8-10.8) K/ul RBC 5.11 (4.70-6.10) M/uL Hgb 16.8 (14.0-18.0) g/dl Hct 46.4 (42.0-52.0) % MCV 90.8 D (80.0-100.0) fL MCH 32.9 (25.0-34.0) pg MCHC 36.2 H (32.0-36.0) g/dL RDW Std Deviation 37.5 (36.4-46.3) fL RDW Coeff of [place]ac[place] 11.2 L (11.5-14.5) % Plt Count 296 (130-400) K/uL MPV 11.2 (9.4-12.4) fL Immature Gran % (Auto) 0.5 % Neut % (Auto) 60.8 % Lymph % (Auto) 25.4 % Hendricks % (Auto) 10.5 % Eos % (Auto) 1.5 % Baso % (Auto) 1.3 % Neut # (Auto) 4.52 (1.40-6.50) K/uL Lymph # (Auto) 1.89 (1.2-3.4) K/uL Hendricks # (Auto) 0.78 H (0.11-0.59) K/uL Eos # (Auto) 0.11 (0-0.50) K/uL Baso # (Auto) 0.10 (0-0.2) K/uL Immature Gran # (Auto) 0.04 (0.01-0.20) K/uL PT (9.0-12.0) Seconds INR (0.9-1.1) VBG pH (7.36-7.41) VBG pCO2 (38-50) mmHg VBG pO2 mmHg VBG HCO3 mmol/L VBG O2 Saturation % VBG Base Excess mEq/L Sodium (136-145) mmol/L Potassium (3.5-5.1) mmol/L Chloride (98-107) mmol/L Carbon Dioxide (21-32) mmol/L Anion Gap (3-11) BUN (6-23) mg/dl Creatinine (0.6-1.4) mg/dl Est Cr Clr Drug Dosing ml/min Est GFR ( Amer) ml/min Est GFR (Non-Af Amer) ml/min BUN/Creatinine Ratio (10-20) Glucose (70-99(Fasting)) mg/dl Lactate 1.9 (0.4-2.0) mmol/L Calcium (8.6-10.3) mg/dl Magnesium (1.7-2.4) mg/dl Total Bilirubin (0.2-1.0) mg/dl Direct Bilirubin AST (13-39) U/L ALT (7-52) U/L Alkaline Phosphatase (34-104) U/L Troponin I High Sens (0-20) pg/ml Total Protein (6.0-8.3) gm/dl Albumin (3.4-5.0) gm/dl Procalcitonin (0-0.5) ng/ml Urine Color Yellow Urine Appearance Clear (Clear) Urine pH 5.0 (4.5-7.5) Ur Specific [place] 1.031 H (1.000-1.030) Urine Protein Negative (Negative) Urine Glucose (UA) 3+ H (Negative) Urine Ketones 1+ H (Negative) Urine Blood Trace H (Negative) Urine Nitrite Negative (Negative) Urine Bilirubin Negative (Negative) Urine Urobilinogen Negative (Negative) Ur Leukocyte Esterase Negative (Negative) Urine WBC (Auto) 1-5 (0-5) /hpf Urine RBC (Auto) 0-4 (0-4) /hpf U Hyaline Cast (Auto) 0 (0-5) /lpf U Epithel Cells (Auto) 0-5 (0-5) /lpf Urine Bacteria (Auto) Negative (Negative) 02/11/23 02/11/23 02/11/23 Range/Units Unknown Unknown Unknown WBC (4.8-10.8) K/ul RBC (4.70-6.10) M/uL Hgb (14.0-18.0) g/dl Hct (42.0-52.0) % MCV (80.0-100.0) fL MCH (25.0-34.0) pg MCHC (32.0-36.0) g/dL RDW Std Deviation (36.4-46.3) fL RDW Coeff of Placido (11.5-14.5) % Plt Count (130-400) K/uL MPV (9.4-12.4) fL Immature Gran % (Auto) % Neut % (Auto) % Lymph % (Auto) % Hendricks % (Auto) % Eos % (Auto) % Baso % (Auto) % Neut # (Auto) (1.40-6.50) K/uL Lymph # (Auto) (1.2-3.4) K/uL Hendricks # (Auto) (0.11-0.59) K/uL Eos # (Auto) (0-0.50) K/uL Baso # (Auto) (0-0.2) K/uL Immature Gran # (Auto) (0.01-0.20) K/uL PT 10.2 (9.0-12.0) Seconds INR 0.9 (0.9-1.1) VBG pH (7.36-7.41) VBG pCO2 (38-50) mmHg VBG pO2 mmHg VBG HCO3 mmol/L VBG O2 Saturation % VBG Base Excess mEq/L Sodium 119 L* (136-145) mmol/L Potassium 4.7 (3.5-5.1) mmol/L Chloride 79 L (98-107) mmol/L Carbon Dioxide 25 (21-32) mmol/L Anion Gap 15 H (3-11) BUN 33 H (6-23) mg/dl Creatinine 1.48 H (0.6-1.4) mg/dl Est Cr Clr Drug Dosing 62.8 ml/min Est GFR ( Amer) 58.4 ml/min Est GFR (Non-Af Amer) 50.3 ml/min BUN/Creatinine Ratio 22.3 H (10-20) Glucose 807 H* (70-99(Fasting)) mg/dl Lactate (0.4-2.0) mmol/L Calcium 10.2 (8.6-10.3) mg/dl Magnesium 2.3 (1.7-2.4) mg/dl Total Bilirubin 0.8 (0.2-1.0) mg/dl Direct Bilirubin TNP AST 28 (13-39) U/L ALT 37 (7-52) U/L Alkaline Phosphatase 127 H (34-104) U/L Troponin I High Sens 13.7 (0-20) pg/ml Total Protein 9.0 H (6.0-8.3) gm/dl Albumin 4.3 (3.4-5.0) gm/dl Procalcitonin 0.32 (0-0.5) ng/ml Urine Color Urine Appearance (Clear) Urine pH (4.5-7.5) Ur Specific [place] (1.000-1.030) Urine Protein (Negative) Urine Glucose (UA) (Negative) Urine Ketones (Negative) Urine Blood (Negative) Urine Nitrite (Negative) Urine Bilirubin (Negative) Urine Urobilinogen (Negative) Ur Leukocyte Esterase (Negative) Urine WBC (Auto) (0-5) /hpf Urine RBC (Auto) (0-4) /hpf U Hyaline Cast (Auto) (0-5) /lpf U Epithel Cells (Auto) (0-5) /lpf Urine Bacteria (Auto) (Negative) 02/11/23 Range/Units Unknown WBC (4.8-10.8) K/ul RBC (4.70-6.10) M/uL Hgb (14.0-18.0) g/dl Hct (42.0-52.0) % MCV (80.0-100.0) fL MCH (25.0-34.0) pg MCHC (32.0-36.0) g/dL RDW Std Deviation (36.4-46.3) fL RDW Coeff of Placido (11.5-14.5) % Plt Count (130-400) K/uL MPV (9.4-12.4) fL Immature Gran % (Auto) % Neut % (Auto) % Lymph % (Auto) % Hendricks % (Auto) % Eos % (Auto) % Baso % (Auto) % Neut # (Auto) (1.40-6.50) K/uL Lymph # (Auto) (1.2-3.4) K/uL Hendricks # (Auto) (0.11-0.59) K/uL Eos # (Auto) (0-0.50) K/uL Baso # (Auto) (0-0.2) K/uL Immature Gran # (Auto) (0.01-0.20) K/uL PT (9.0-12.0) Seconds INR (0.9-1.1) VBG pH 7.38 (7.36-7.41) VBG pCO2 51 H (38-50) mmHg VBG pO2 21 mmHg VBG HCO3 30 mmol/L VBG O2 Saturation < 60.0 % VBG Base Excess 3.9 mEq/L Sodium (136-145) mmol/L Potassium (3.5-5.1) mmol/L Chloride (98-107) mmol/L Carbon Dioxide (21-32) mmol/L Anion Gap (3-11) BUN (6-23) mg/dl Creatinine (0.6-1.4) mg/dl Est Cr Clr Drug Dosing ml/min Est GFR ( Amer) ml/min Est GFR (Non-Af Amer) ml/min BUN/Creatinine Ratio (10-20) Glucose (70-99(Fasting)) mg/dl Lactate (0.4-2.0) mmol/L Calcium (8.6-10.3) mg/dl Magnesium (1.7-2.4) mg/dl Total Bilirubin (0.2-1.0) mg/dl Direct Bilirubin AST (13-39) U/L ALT (7-52) U/L Alkaline Phosphatase (34-104) U/L Troponin I High Sens (0-20) pg/ml Total Protein (6.0-8.3) gm/dl Albumin (3.4-5.0) gm/dl Procalcitonin (0-0.5) ng/ml Urine Color Urine Appearance (Clear) Urine pH (4.5-7.5) Ur Specific [place] (1.000-1.030) Urine Protein (Negative) Urine Glucose (UA) (Negative) Urine Ketones (Negative) Urine Blood (Negative) Urine Nitrite (Negative) Urine Bilirubin (Negative) Urine Urobilinogen (Negative) Ur Leukocyte Esterase (Negative) Urine WBC (Auto) (0-5) /hpf Urine RBC (Auto) (0-4) /hpf U Hyaline Cast (Auto) (0-5) /lpf U Epithel Cells (Auto) (0-5) /lpf Urine Bacteria (Auto) (Negative) Administered Medications Sodium Chloride (Nss 1000ml) 1,000 mls @ 999 mls/hr IV .Q1H1M MABEL Stop: 02/11/23 22:00 Last Admin: 02/11/23 20:14 Dose: 999 mls/hr Documented By: ALLYSON Discontinued Medications Sodium Chloride (Nss 1000ml) 1,000 mls @ 999 mls/hr IV .Q1H1M MABEL Stop: 02/11/23 21:00 Last Admin: 02/11/23 20:13 Dose: 999 mls/hr Documented By: ALLYSON Discharge Plan Visit Data Chief Complaint: Hyperglycemia Stated Complaint: HYPERGLYCEMIA ED Provider: Rajan Morrell Discharge Problem: Hyperosmolar hyperglycemic state (HHS) Forms Stand Alone Forms: [facility] Prescriptions Prescriptions: No Action metoprolol tartrate 50 mg tablet 75 mg PO BID 90 Days Qty: 270 3RF lisinopril 40 mg tablet 40 mg PO QAM Qty: 90 3RF amlodipine 10 mg tablet 10 mg PO QAM Qty: 90 3RF hydrochlorothiazide 25 mg tablet 25 mg PO QAM Qty: 90 3RF venlafaxine 75 mg capsule,extended release 24hr 225 mg PO QPM Qty: 270 3RF gabapentin 300 mg capsule 300 mg PO TID Qty: 270 1RF omeprazole 40 mg capsule,delayed release(DR/EC) 40 mg PO QAM Qty: 90 3RF prednisone 10 mg tablets,dose pack 10 mg PO . DIRECTED Qty: 21 0RF Rx Instructions: did not start yet albuterol sulfate [Ventolin HFA] 90 mcg/actuation Hfa Aerosol Inhaler 2 puff INHALATION QID PRN (Reason: Shortness Of Breath) desonide 0.05 % ointment 1 appln TOP BID PRN (Reason: ud) fluocinolone 0.01 % oil 1 appln TOP .COMPLEX PRN (Reason: ud) Rx Instructions: 1 applic TOP APPLY TO SCALP AND LEAVE ON OVERNIGHT DIRECTED; betamethasone dipropionate 0.05 % lotion 1 applic topical DAILY PRN (Reason: Rash) Rx Instructions: Apply to areas of the scalp once daily at bedtime for up to 2 weeks as needed for flaring. Referrals Referrals: ProJason MD [Primary Care Provider] -
[2023-02-11 20:06] LABS: Base Excess VBG 3.9 mEq/L; HCO3 VBG 30 mmol/L; Oxygen Saturation VBG < 60.0 %; PCO2 VBG 51 mmHg (38-50); PO2 VBG 21 mmHg; pH VBG 7.38 (7.36-7.41)
[2023-02-11] MEDS: SODIUM CHLORIDE 0.9% 1000ML 1,000 ML IV SCH ×4 (20:13→21:44)
[2023-02-11 20:14] LABS: Basophils % (auto) 1.3 %; Eosinophils # (auto) 0.11 K/uL (0-0.50); Eosinophils % (auto) 1.5 %; Hematocrit (blood only) 46.4 % (42.0-52.0); Hemoglobin 16.8 g/dl (14.0-18.0); Immature Granulocytes # (auto) 0.04 K/uL (0.01-0.20); Immature Granulocytes % (auto) 0.5 %; Lymphocytes # (auto) 1.89 K/uL (1.2-3.4); Lymphocytes % (auto) 25.4 %; Mean Corpuscular Hemoglobin 32.9 pg (25.0-34.0); Mean Corpuscular Hgb Conc 36.2 g/dL (32.0-36.0); Mean Corpuscular Volume 90.8 fL (80.0-100.0); Mean Platelet Volume 11.2 fL (9.4-12.4); Monocytes # (auto) 0.78 K/uL (0.11-0.59); Monocytes % (auto) 10.5 %; Neutrophils # (auto) 4.52 K/uL (1.40-6.50); Neutrophils % (auto) 60.8 %; Platelet Count 296 K/uL (130-400); RDW Coefficient of Variation 11.2 % (11.5-14.5); RDW Standard Deviation 37.5 fL (36.4-46.3); Red Blood Count 5.11 M/uL (4.70-6.10); White Blood Count 7.44 K/ul (4.8-10.8)
[2023-02-11 20:40] LABS: INR 0.9 (0.9-1.1); Prothrombin Time 10.2 Seconds (9.0-12.0)
[2023-02-11 20:40] LABS: Appearance Urine Clear (Clear); Bacteria Urine Automated Negative (Negative); Bilirubin Urine Negative (Negative); Blood Urine Trace (Negative); Cast Urine Automated 0 /lpf (0-5); Color Urine Yellow; Epithelial Cell Urine Auto 0-5 /lpf (0-5); Glucose Urine UA 3+ (Negative); Ketones Urine 1+ (Negative); Leukocyte Esterase Urine Negative (Negative); Nitrite Urine Negative (Negative); Protein Urine Negative (Negative); RBC Urine Automated 0-4 /hpf (0-4); Specific Gravity Urine 1.031 (1.000-1.030); Urobilinogen Urine Negative (Negative)
[2023-02-11 21:06] LABS: Alanine Aminotransferase 37 U/L (7-52); Albumin Level 4.3 gm/dl (3.4-5.0); Alkaline Phosphatase 127 U/L (34-104); Anion Gap 15 (3-11); Aspartate Aminotransferase 28 U/L (13-39); BUN Creatinine Ratio 22.3 (10-20); Bilirubin,Total 0.8 mg/dl (0.2-1.0); Blood Urea Nitrogen 33 mg/dl (6-23); Calcium 10.2 mg/dl (8.6-10.3); Carbon Dioxide 25 mmol/L (21-32); Chloride 79 mmol/L (98-107); Creatinine Clr Calc Pharmacy 62.8 ml/min; Est GFR (African American) 58.4 ml/min; Est GFR (Non-African American) 50.3 ml/min; Glucose 807 mg/dl (70-99(Fasting)); Magnesium 2.3 mg/dl (1.7-2.4); Potassium 4.7 mmol/L (3.5-5.1); Sodium 119 mmol/L (136-145); Troponin I High Sensitivity 13.7 pg/ml (0-20)
[2023-02-11] MEDS ORDERED: GLUCOSE 10 TAB/TUBE PO PRN (21:07)
[2023-02-11] MEDS ORDERED: DEXTROSE 50% 50 ML SYRINGE IV PRN (21:07)
[2023-02-11] MEDS ORDERED: GLUCAGON FOR INJ 1 MG VIAL SQ PRN (21:07)
[2023-02-11] MEDS ORDERED: GLUCOSE 40% GEL 15 GM TUBE PO PRN (21:07)
[2023-02-11] MEDS ORDERED: CARBOHYDRATES FOR HYPOGLYCEMIA PO PRN (21:07)
[2023-02-11] MEDS ORDERED: STAT INSULIN DRIP STA (21:07)
--- NOTE | 2023-02-11 21:29 | History & Physical Report ---
Date of Service February 11, 2023 Assessment & Plan (1) Hyperosmolar hyperglycemic state (HHS): Plan: HHS - Continue insulin drip, glycemic consult -IVF 1/2 normal saline 250ml/hr with 20meq K per liter, plan to switch to 5% dextrose with 1/2 NS once glucose is below 300 and he is able to eat switch to SC - Hemoglobin a1c= 11.4 - q4 VBG, BMP, Mg, Phos Headache - Symptoms are consistent with prior migraines that have been trigger by viral illness - started on Effexor for both mood and headache prophylaxis; continue - Given concern for new onset confusion and neurologic symptoms; Head CT is pending Hyponatremia - Sodium corrected for glucose 130 - Fluids as per above - continue to trend q4 hour BMP JOSE LUIS on CKD - likely prerenal in the setting of dehydration secondary to hyperglycemia - baseline creatine 1.1-1.2 - IVF as per above - continue to trend creatine Polyneuropathy - Continue gabapentin HTN - Continue amlodipine/metoprolol - Hold lisinopril/HCTZ given JOSE LUIS Asthma - albuterol inhaler prn GERD - continue PPI (2) Headache: (3) Hyponatremia: (4) JOSE LUIS (acute kidney injury): (5) HTN (hypertension): (6) Asthma: (7) Polyneuropathy: Plan Diet: NPO while on insulin drip Dispo: PCU VTE Prophylaxis: Hold pending Head CT results. Code: Full History of Present Illness Primary Care Provider: Jason Loya MD 62 year old male with a past medical history of HTN, asthma, migraines, GERD, TBI presenting with weakness over the past several days. Has felt ill for the p ast 2 weeks. Has a prior diagnosis of "prediabetes" not on any diabetic medications. He has had increased confusion over the past 5-6 days with balance issues and some possible vision changes. He does have a history of TBI with residual left sided weakness, word recall, vision issues, and memory problems so somewhat challenging to differentiate old vs new symptoms but states that he has been more confused. Was seen in PCP office 02/04 for evaluation of sore throat. Was recommenced to go to ED after that visit for stroke work-up due to possible new confusion, weakness, neurologic symptoms but did not go. EBV panel showed old infx but no acute. Strep at PCP negative. Was seen again at PCP today for sore throat, headache, dizziness and confusion. Does note some mild intermittent abdominal pain around umbilicus without radiation. Denies diarrhea, constipation, blood in stool. Headache is similar to migraines that he has had in past; frontal with radiation to eye/jaw. Notes that he has polyuria and polydipsia. OP blood work showed blood glucose over 1000 with Na= 114. ED Work-up significant for: Blood glucose= 807, BZ=263 (corrects to130) , K= 4.7, creatine= 1.33, lactic acid= 1.9. UA with 3+ glucose, 1+ ketones. Bicarb= 25. VBG with normal pH= 7.38. CXR without acute process. Troponin negative, EKG without ischemic change. Started on insulin drip. 2L NS Allergies Allergy/AdvReac Type Severity Reaction Status Date / Time Penicillins Allergy Severe Anaphylaxis Verified 02/11/23 15:48 Home Medications Medication Instructions Recorded Confirmed Type albuterol sulfate 90 mcg/actuation 2 puff inhalation QID PRN 06/22/18 02/11/23 H istory aerosol inhaler (Ventolin HFA) Shortness Of Breath desonide 0.05 % topical ointment 1 appln topical BID PRN ud 01/18/20 02/11/23 History fluocinolone 0.01 % topical body 1 appln topical .COMPLEX PRN ud 01/18/20 02/11/23 History oil metoprolol tartrate 50 mg tablet 75 mg PO BID 90 days #270 tabs 03/22/22 02/11/23 Rx amlodipine 10 mg tablet 10 mg PO QAM #90 tabs 06/18/22 02/11/23 Rx lisinopril 40 mg tablet 40 mg PO QAM #90 tabs 06/18/22 02/11/23 Rx hydrochlorothiazide 25 mg tablet 25 mg PO QAM #90 tabs 10/11/22 02/11/23 Rx venlafaxine 75 mg capsule,extended 225 mg PO QPM #270 caps 10/11/22 02/11/23 Rx release 24 hr betamethasone dipropionate 0.05 % 1 applic topical DAILY PRN Rash 11/13/22 02/11/23 History lotion gabapentin 300 mg capsule 300 mg PO TID #270 caps 01/06/23 02/11/23 Rx omeprazole 40 mg capsule,delayed 40 mg PO QAM #90 caps 01/06/23 02/11/23 Rx release prednisone 10 mg tablets in a dose 10 mg PO . DIRECTED #21 ea 02/11/23 02/11/23 Rx pack atorvastatin 20 mg tablet 20 mg PO QAM 30 days #30 tabs 02/13/23 Rx blood sugar diagnostic (OneTouch #100 ea 02/13/23 Rx Verio test strips) cholecalciferol (vitamin D3) 125 5,000 unit PO QAM 30 days #30 tabs 02/13/23 Rx mcg (5,000 unit) tablet insulin glargine-yfgn 100 unit/mL 50 unit (0.5 mL) subcut DAILY #15 02/13/23 Rx (3 mL) subcutaneous pen (Semglee mL (insulin glargine-yfgn) Pen) lancets 30 gauge (Onetouch Delica #100 ea 02/13/23 Rx Safety Lancet) metformin 500 mg tablet,extended 500 mg PO BID #60 tabs 02/13/23 Rx release 24 hr pen needle, diabetic 32 gauge x #1,200 ea 02/13/23 Rx 32" Past Med/Surg History Medical History (Updated 02/13/23 @ 13:06 by Dinh Umanzor MD) Asthma rare use PRN inh 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 Rodriguez @ [facility] [place] Left Tympanoplasty/Right T-Tube Placement History of esophagogastroduodenoscopy (EGD) History of knee surgery History of myringotomy 01/27/2020 [facility] [place] History of tonsillectomy History of tooth extraction Family History Mother Family history of diabetes mellitus Father Family history of diabetes mellitus Myocardial infarction Sister Breast cancer Brother Breast cancer Uncle Colorectal cancer Other No family history of adverse response to anesthesia Denies family history of Ovarian cancer Prostate cancer Social History Smoking Status: Former smoker Tobacco Type: Smokeless Tobacco (Dip or Chew) Second Hand Exposure: No; Do You Dip or Chew Tobacco: Yes; Tobacco Cessation Education Requested by Patient: No Hx Alcohol Use: No Hx Substance Use: No Preferred Language: Hungarian Communication Ability: Effective 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 Beliefs That Will Affect Care: None marital status: Current Living Situation: Spouse current occupational status: employed Other Information That Helps Us Care for You: No Feels Safe at Home: Yes Safety Concerns: Feels Safe At This Time Childhood Exposure to Second-Hand Smoke: Yes Dental Care, Regularly: Yes Seatbelt Use: always Sunscreen Use: Yes Assistive Devices: None Review of Systems Review of Systems: As per above Physical Exam Physical Exam: Constitutional: well-appearing, no acute distress HEENT: NCAT, no conjunctival injection CV: regular rhythm, no murmur appreciated, extremities well-perfused, no LE edema Resp: CTABL, no wheezes/rales/rhonchi appreciated, no increased work of breathing GI: soft, nondistended, mild diffuse tender, without rebound or guarding, BS normoactive MSK: no gross deformities appreciated Skin: warm, dry, no rash appreciated Neurologic: CN's II-XI intact bilaterally, moves all extremities, awake and + confused Speech / Cognition: normal speech Motor/Sensory: normal movement Strength Right UE/LE 5/5, Left 4/5 Results & Data Results & Data Vital Signs (Past 12 Hours) Vital Signs Temp Pulse Pulse Resp BP Pulse Ox O2 Del Method 02/11/23 20:18 78 28 H 99 Room Air 02/11/23 19:36 36.9 C 92 H 19 152/89 H 95 Room Air Supervising Physician Co-Signing Physician Notes Attending addendum: I have physically seen this patient, have supervised the medical residents activities, and agree with the H&P unless as otherwise noted. Assessment and Plan: HHS- Glucose 807 on admission Already given regular insulin 10 mg IV, and then insulin drip begun. We will continue with protocol Half-normal saline with KCl 20 mEq at 2 every 4 laboratories: 50 mils per hour, with plan to add D5 when glucose is 300 BMP, magnesium, phosphorus and VBG Hyponatremia- Glucose 119 on admission, corrects to 130 IV fluids as noted above, repeat laboratories every 4 hours intervals JOSE LUIS on CKD- Creatinine 1.48, baseline 1.00-1.1 IV fluids as noted above, and check laboratories serially Remaining orders and notations as noted Resident Activity Tracking Resident Involvement: Resident Care Provided Care Provided: Adult [facility]
[2023-02-11] MEDS ORDERED: NovoLIN-R BOLUS FROM BAG IV ONE (21:30)
[2023-02-11] MEDS: INSULIN REGULAR 250 UNITS in SODIUM CHLORIDE 0.9% 247.5 ML IV SCH (21:46)
[2023-02-11] MEDS ORDERED: ACETAMINOPHEN 1,000 MG/100 ML VIAL IV STA (21:58)
[2023-02-11] MEDS ORDERED: HHS GOAL RANGE 250-350 mg/dl ONE (22:55)
[2023-02-11] MEDS ORDERED: PHARMACY GLYCEMIC MGMT CONSULT PRN (22:55)
[2023-02-11] MEDS ORDERED: POTASSIUM CHLORIDE 20 MEQ in SODIUM CHLORIDE 0.45 % 1,000 ML IV SCH (23:00)
[2023-02-11] MEDS ORDERED: PENDING D5 1/2NS+20mEq KCL IVF SCH (23:00)
[2023-02-12] MEDS: INSULIN REGULAR 250 UNITS in SODIUM CHLORIDE 0.9% 247.5 ML IV SCH (00:26)
[2023-02-12] MEDS ORDERED: ALBUTEROL HFA 8 GM INHALER INH PRN (00:29)
[2023-02-12 00:34] LABS: BUN Creatinine Ratio 22.4 (10-20); Calcium 9.3 mg/dl (8.6-10.3); Creatinine Clr Calc Pharmacy 74.3 ml/min; Est GFR (African American) 71.6 ml/min; Est GFR (Non-African American) 61.8 ml/min; Magnesium 2.1 mg/dl (1.7-2.4); Phosphorus 2.2 mg/dl (2.5-4.9)
--- NOTE | 2023-02-12 00:41 | CT Scan Report ---
Exam(s): CT HEAD Without Contrast EXAM: CT Head Without Intravenous Contrast CLINICAL HISTORY: Reason for exam: JAMES. TECHNIQUE: Axial computed tomography images of the head/brain without intravenous contrast. CTDI is 38.6 mGy and DLP is 780.51 mGy-cm. Automated exposure control was utilized for the study. A dose lowering technique was utilized adhering to the principles of ALARA. COMPARISON: 09/30/2017. FINDINGS: Brain: Mild generalized brain atrophy. Slight decreased attenuation within the department is suggestive of mild microangiopathic white matter changes. No hemorrhage. Ventricles: Unremarkable. No ventriculomegaly. Bones/joints: Unremarkable. No acute fracture. Soft tissues: Unremarkable. Sinuses: Unremarkable as visualized. No acute sinusitis. Mastoid air cells: Unremarkable as visualized. No mastoid effusion. IMPRESSION: Chronic changes as described. No acute intracranial hemorrhage or space-occupying lesion, stable study in the interval. Electronically signed by: Emely Medina MD 02/12/23 00:40 AM
[2023-02-12] MEDS ORDERED: HYDROmorphone INJ 0.5 MG/0.5 ML SYR IV STA ×2 (01:14→06:21)
[2023-02-12] MEDS ORDERED: Nursing to Pharmacy Communication SCH (01:30)
[2023-02-12] MEDS: D5W AND 1/2NSS + 20MEQ KCL 20 MEQ/1,000 ML BAG IV SCH ×3 (01:50→10:21)
[2023-02-12 03:39] LABS: BUN Creatinine Ratio 23.4 (10-20); Calcium 9.1 mg/dl (8.6-10.3); Creatinine Clr Calc Pharmacy 87.1 ml/min; Est GFR (African American) 82.6 ml/min; Est GFR (Non-African American) 71.3 ml/min; Phosphorus 3.1 mg/dl (2.5-4.9); Potassium 3.4 mmol/L (3.5-5.1)
[2023-02-12] MEDS ORDERED: ACETAMINOPHEN 1,000 MG/100 ML VIAL IV PRN (06:00)
--- NOTE | 2023-02-12 07:14 | XRay Report ---
SINGLE VIEW CHEST CLINICAL HISTORY: Sepsis. FINDINGS: An AP, portable, semierect chest radiograph is compared to study dated 05/01/2021. Correlat ion is made with chest CT dated 10/08/2017. The examination is degraded by portable technique and apic al lordotic positioning. The heart is enlarged. The pulmonary vasculature is noncongested. Chronic in terstitial thickening is similar to previous. There are low lung volumes and bibasilar atelectasis. N o airspace consolidation or large pleural effusion is identified. No pneumothorax is seen. The skelet al structures are osteopenic. The bony thorax is grossly intact. IMPRESSION: Cardiomegaly with no active disease in the chest. ACT 112: Negative or not required by law. Electronically signed by: David Villegas M.D. 02/12/2023 7:13 AM
[2023-02-12 07:36] LABS: Calcium 8.8 mg/dl (8.6-10.3); Creatinine Clr Calc Pharmacy 100.8 ml/min; Est GFR (African American) 98.5 ml/min; Phosphorus 2.8 mg/dl (2.5-4.9); Potassium 3.4 mmol/L (3.5-5.1)
[2023-02-12] MEDS: amLODIPine BESYLATE 5 MG TAB PO SCH (07:59)
[2023-02-12] MEDS: GABAPENTIN 300 MG CAP PO SCH ×3 (07:59→21:24)
[2023-02-12] MEDS: METOPROLOL TARTRATE 25 MG TAB PO SCH ×2 (07:59→21:04)
[2023-02-12] MEDS: PANTOprazole 40 MG TAB PO SCH (08:00)
--- NOTE | 2023-02-12 09:50 | Pharmacy Report ---
Pharmacy Glycemic Short Note 2 - Date of Service February 12, 2023 - Glycemic Short BSG Results (Last 24 hours): 02/11/23 02/11/23 02/11/23 19:48 22:57 23:19 Glucose 484 H* POC Glucose > 600 H* 542 H* 02/11/23 02/12/23 02/12/23 Unknown 00:22 01:11 Glucose 807 H* POC Glucose 359 H* 315 H* 02/12/23 02/12/23 02/12/23 02:10 03:01 03:03 Glucose 226 H POC Glucose 268 H 243 H 02/12/23 02/12/23 02/12/23 03:59 05:00 06:07 Glucose POC Glucose 230 H 236 H 226 H 02/12/23 02/12/23 02/12/23 06:48 06:59 08:02 Glucose 240 H POC Glucose 240 H 247 H 02/12/23 09:09 Glucose POC Glucose 269 H OUTPATIENT ANTIDIABETIC REGIMEN: * n/a HbA1c: 11.4% (02/11/23) ASSESSMENT: * OS is a 62 year old male who presented to ED on 02/11/23 w/ complaints of increased weakness over past several days * Found to have BSG > 600 mg/dL, presumed HHS * Insulin infusion and IV fluids initiated - BSGs have trended down (now at goal <300 mg/dL) * IV fluids were appropriately changed to include dextrose once below 300 mg/dL * Diet ordered today with lunch - IV fluids changed to NSS + 20 KCl @100 mL/hr * Will give basal insulin now to hopefully transition insulin infusion PLAN FOR INPATIENT GLYCEMIC CONTROL: * Insulin infusion * Basal insulin * Lantus 40 units SC x 1 (~full weight-based stress of 2) * If gtt rates increase throughout the day today, will consider additional 20 units of Lantus this evening * Bolus insulin - * Nutritional / Prandial insulin per carb ratio of 1 unit per 5 grams CHO consumed while on insulin gtt
[2023-02-12] MEDS ORDERED: LANTUS PER UNIT CHARGE SC ONE ×2 (11:00→19:15)
[2023-02-12] MEDS: INSULIN ASPART PER UNIT CHARGE SC SCH ×4 (12:05→21:22)
[2023-02-12] MEDS: NSS + 20MEQ KCL 20 MEQ/1,000 ML BAG IV SCH ×2 (12:12→21:22)
[2023-02-12 12:37] LABS: BUN Creatinine Ratio 23.1 (10-20); Calcium 8.6 mg/dl (8.6-10.3); Creatinine Clr Calc Pharmacy 106.3 ml/min; Est GFR (African American) 105.1 ml/min; Est GFR (Non-African American) 90.6 ml/min; Magnesium 1.9 mg/dl (1.7-2.4); Phosphorus 2.7 mg/dl (2.5-4.9); Potassium 3.5 mmol/L (3.5-5.1)
--- NOTE | 2023-02-12 13:15 | Hospitalist Progress Note ---
Date of Service February 12, 2023 Assessment & Plan (1) Hyperosmolar hyperglycemic state (HHS): Plan: Patient has a history of prediabetes, presented to his PCP with complaints of headache dizziness and feeling of unwell. He was sent to ER for lab work and found to have a blood glucose of over 800. Found to be in HHS Initially started on IV insulin drip. Has been transitioned to subcu insulin, glycemia management on consult Blood glucose now around 200s. We will obtain hemoglobin A1c Upon discharge, patient will need glucose monitoring kit. For his regimen, will prefer oral hypoglycemic agents instead of insulin (2) Headache: Plan: Headache - Symptoms are consistent with prior migraines that have been trigger by viral illness - started on Effexor for both mood and headache prophylaxis; continue -CT scan of the head did not show any acute pathology (3) Hyponatremia: Plan: Much improvement following IV fluids (4) JOSE LUIS (acute kidney injury): Plan: JOSE LUIS on CKD - likely prerenal in the setting of dehydration secondary to hyperglycemia - baseline creatine 1.1-1.2 - IVF as per above - continue to trend creatine (5) HTN (hypertension): Plan: HTN - Continue amlodipine/metoprolol - Hold lisinopril/HCTZ given JOSE LUIS (6) Polyneuropathy: Plan: Polyneuropathy - Continue gabapentin (7) Metabolic encephalopathy: Plan: Acute metabolic encephalopathy most likely secondary to hypoglycemia Much improved following improvement in blood glucose. CT scan of the head did not show any acute pathology. (8) Asthma: Plan Diet: Carb controlled diet Dispo: PCU VTE Prophylaxis: SCDs Code: Full Admission and Anticipated Discharge Date Admission Date: February 11, 2023 Subjective Patient seen and examined, at the bedside, was never diagnosed with diabetes but has prediabetes. Review of Systems Review of Systems: All systems reviewed are negative, apart from the ones contained in the history. Physical Exam Physical Exam: The patient is awake, alert and oriented 3, well developed and well nourished, normocephalic and atraumatic, lying in bed and in no acute distress. HEENT--PERRL, EOMI, mucous membranes and oropharynx mildly dry Neck--supple. No JVD. No bruits. Thyroid normal, trachea midline, no adenopathy. Heart--normal S1 and S2. No murmurs, rubs or gallops. Lungs--clear bilaterally, no respiratory distress, no accessory muscle use. Abdomen--normal bowel sounds and soft. Mild epigastric and left sided abdominal pain Extremities--no cyanosis or clubbing. No edema. Dermatologic--normal skin turgor, normal color, no abnormal lymph nodes, no rash. Neurologic--cranial nerves II through XII grossly intact. Rheumatologic--normal range of motion. Psychiatric--normal affect. Results & Data Results & Data Vital Signs (Past 12 Hours) Vital Signs Temp Pulse Pulse Resp BP Pulse Ox O2 Del Method 02/12/23 11:26 98.4 F 61 22 113/77 90 Room Air 02/12/23 07:27 97.7 F 78 20 126/77 94 Room Air 02/12/23 03:18 97.3 F L 92 H 16 112/73 94 Room Air PG Care Time/CCT Total # of Minutes Spent Total Time Spent with Patient: Total time spent is greater than 50% in coordination of care (as documented) at patient's floor/unit and/or counseling patient: Coding Level of Care Code 73562 SUB INP/OBS CARE 2/35MIN Diagnoses Hyperosmolar hyperglycemic state (HHS) E11.00 Headache R51.9 Hyponatremia E87.1 JOSE LUIS (acute kidney injury) N17.9 HTN (hypertension) I10 Polyneuropathy G62.9 Metabolic encephalopathy G93.41 Asthma J45.909 Time Spent (min) 35
[2023-02-12] MEDS ORDERED: KETOROLAC TROMETHAMINE 15 MG/ML VIAL IV ONE ×2 (14:56→20:14)
[2023-02-12 15:42] LABS: BUN Creatinine Ratio 19.3 (10-20); Calcium 8.4 mg/dl (8.6-10.3); Creatinine Clr Calc Pharmacy 84.9 ml/min; Magnesium 1.8 mg/dl (1.7-2.4); Phosphorus 2.2 mg/dl (2.5-4.9); Potassium 3.9 mmol/L (3.5-5.1)
[2023-02-12] MEDS: NICOTINE 14 MG/24 HR PATCH TD SCH (15:55)
[2023-02-12 20:30] LABS: BUN Creatinine Ratio 18.3 (10-20); Calcium 8.5 mg/dl (8.6-10.3); Creatinine Clr Calc Pharmacy 76.8 ml/min; Est GFR (African American) 70.9 ml/min; Est GFR (Non-African American) 61.2 ml/min; Magnesium 1.7 mg/dl (1.7-2.4); Phosphorus 1.6 mg/dl (2.5-4.9); Potassium 3.9 mmol/L (3.5-5.1)
[2023-02-12] MEDS: VENLAFAXINE HCL XR 75 MG CAPXR PO SCH (21:25)
[2023-02-12] MEDS: ACETAMINOPHEN 500 MG TAB PO PRN (23:27)
[2023-02-13] MEDS: NSS + 20MEQ KCL 20 MEQ/1,000 ML BAG IV SCH ×2 (07:12→17:28)
[2023-02-13] MEDS: INSULIN ASPART PER UNIT CHARGE SC SCH ×4 (07:58→21:43)
[2023-02-13] MEDS: NICOTINE 14 MG/24 HR PATCH TD SCH (08:32)
[2023-02-13] MEDS: amLODIPine BESYLATE 5 MG TAB PO SCH (08:33)
[2023-02-13] MEDS: PANTOprazole 40 MG TAB PO SCH (08:33)
[2023-02-13] MEDS: METOPROLOL TARTRATE 25 MG TAB PO SCH ×2 (08:34→21:09)
[2023-02-13] MEDS: GABAPENTIN 300 MG CAP PO SCH ×3 (08:35→21:10)
[2023-02-13] MEDS ORDERED: LANTUS PER UNIT CHARGE SC SCH ×2 (09:00→21:00)
[2023-02-13 09:39] LABS: Hematocrit (blood only) 39.9 % (42.0-52.0); Hemoglobin 14.2 g/dl (14.0-18.0); Mean Corpuscular Hemoglobin 32.8 pg (25.0-34.0); Mean Corpuscular Hgb Conc 35.6 g/dL (32.0-36.0); Mean Corpuscular Volume 92.1 fL (80.0-100.0); Mean Platelet Volume 11.5 fL (9.4-12.4); Platelet Count 233 K/uL (130-400); RDW Coefficient of Variation 11.5 % (11.5-14.5); RDW Standard Deviation 39.8 fL (36.4-46.3); Red Blood Count 4.33 M/uL (4.70-6.10); White Blood Count 6.93 K/ul (4.8-10.8)
[2023-02-13 09:47] LABS: Calcium 8.4 mg/dl (8.6-10.3); Creatinine Clr Calc Pharmacy 98.5 ml/min; Est GFR (African American) 93.7 ml/min; Est GFR (Non-African American) 80.9 ml/min; Potassium 4.2 mmol/L (3.5-5.1)
[2023-02-13] MEDS ORDERED: KETOROLAC TROMETHAMINE 15 MG/ML VIAL IV ONE (10:13)
--- NOTE | 2023-02-13 10:38 | Pharmacy Report ---
Pharmacy Glycemic Short Note 2 - Date of Service February 13, 2023 - Glycemic Short BSG Results (Last 24 hours): 02/12/23 02/12/23 02/12/23 11:16 11:31 13:00 Glucose 267 H POC Glucose 269 H 324 H* 02/12/23 02/12/23 02/12/23 14:14 15:04 15:32 Glucose 280 H POC Glucose 269 H 278 H 02/12/23 02/12/23 02/12/23 16:17 17:13 18:14 Glucose POC Glucose 241 H 287 H 263 H 02/12/23 02/12/23 02/12/23 19:12 19:47 20:13 Glucose 219 H POC Glucose 260 H 236 H 02/12/23 02/13/23 02/13/23 22:25 00:09 01:10 Glucose POC Glucose 161 H 113 H 93 02/13/23 02/13/23 02/13/23 02:09 03:11 03:29 Glucose POC Glucose 92 86 90 02/13/23 02/13/23 02/13/23 04:09 04:37 06:35 Glucose POC Glucose 106 H 125 H 189 H 02/13/23 02/13/23 02/13/23 07:36 08:32 09:51 Glucose 309 H* POC Glucose 185 H 332 H* 02/13/23 09:56 Glucose POC Glucose 372 H* OUTPATIENT ANTIDIABETIC REGIMEN: * n/a HbA1c: 11.4% (02/11/23) ASSESSMENT: 02/13/23: * Insulin drip turned itself off early this AM due to BSGs going below goal 92- 106 mg/dl. * Since patient's labs are normal and gap is closed, insulin drip was discont inued this AM. * Novolog ordered using stress of 3. Pre-lunch BSG trended up to 288 mg/dl, so Novolog carb ratio tightened further. * Basal insulin 30 units this AM also ordered using stress of 3. Patient received total 60 units of basal yesterday in addition to the insulin drip and Novolog coverage with meals. * Ordered additional basal dose scale (20-30 units) for HS based on BSG at that time. Background 02/12/23: * OS is a 62 year old male who presented to ED on 02/11/23 w/ complaints of increased weakness over past several days * Found to have BSG > 600 mg/dL, presumed HHS * Insulin infusion and IV fluids initiated - BSGs have trended down (now at goal <300 mg/dL) * IV fluids were appropriately changed to include dextrose once below 300 mg/dL * Diet ordered today with lunch - IV fluids changed to NSS + 20 KCl @100 mL/hr * Will give basal insulin now to hopefully transition insulin infusion PLAN FOR INPATIENT GLYCEMIC CONTROL: * Insulin infusion discontinued this AM * Basal insulin * Lantus 30 units SC today AM * Lantus 20-30 units SC HS * Bolus insulin * NovoLog per scale ACHS or Q6hrs while NPO * Goal Range: Low 110 mg/dL - High 140 mg/dL * Correction Factor: 12 mg/dL/unit * Nutritional / Prandial insulin per carb ratio of 1 unit per 4 grams CHO consumed
--- NOTE | 2023-02-13 12:07 | Hospitalist Progress Note ---
Date of Service February 13, 2023 Assessment & Plan (1) Hyperosmolar hyperglycemic state (HHS): Plan: Patient has a history of prediabetes, presented to his PCP with complaints of headache dizziness and feeling of unwell. He was sent to ER for lab work and found to have a blood glucose of over 800. Found to be in HHS Hemoglobin A1c found to be 11.4 Initially started on IV insulin drip, he has been transitioned to subcu with insulin, glargine 30 units every morning and insulin sliding scale Pharmacy glycemia management on consult Blood glucose still reported to be around 300 this afternoon. We will keep titrating the insulin until the blood glucose is under acceptable levels Upon discharge, patient will need glucose monitoring kit. For his regimen, will prefer oral hypoglycemic agents instead of insulin We will also consult diabetes education patient will need to be taught how to give subcu insulins. (2) Headache: Plan: Headache - Symptoms are consistent with prior migraines that have been trigger by viral illness - started on Effexor for both mood and headache prophylaxis; continue -CT scan of the head did not show any acute pathology (3) Hyponatremia: Plan: Much improvement following IV fluids (4) JOSE LUIS (acute kidney injury): Plan: JOSE LUIS on CKD - likely prerenal in the setting of dehydration secondary to hyperglycemia - baseline creatine 1.1-1.2 - IVF as per above - continue to trend creatine (5) HTN (hypertension): Plan: HTN - Continue amlodipine/metoprolol - Hold lisinopril/HCTZ given JOSE LUIS (6) Polyneuropathy: Plan: Polyneuropathy - Continue gabapentin (7) Metabolic encephalopathy: Plan: Acute metabolic encephalopathy most likely secondary to hypoglycemia Much improved following improvement in blood glucose. CT scan of the head did not show any acute pathology. (8) Asthma: Plan Diet: Carb controlled diet Dispo: Hopefully discharge when blood glucose under better control. VTE Prophylaxis: SCDs Code: Full Admission and Anticipated Discharge Date Admission Date: February 11, 2023 Subjective Patient seen and examined, at the bedside, patient wanted to find out if he could be discharged Review of Systems Review of Systems: All systems reviewed are negative, apart from the ones contained in the history. Physical Exam Physical Exam: The patient is awake, alert and oriented 3, well developed and well nourished, normocephalic and atraumatic, lying in bed and in no acute distress. HEENT--PERRL, EOMI, mucous membranes and oropharynx mildly dry Neck--supple. No JVD. No bruits. Thyroid normal, trachea midline, no adenopathy. Heart--normal S1 and S2. No murmurs, rubs or gallops. Lungs--clear bilaterally, no respiratory distress, no accessory muscle use. Abdomen--normal bowel sounds and soft. Mild epigastric and left sided abdominal pain Extremities--no cyanosis or clubbing. No edema. Dermatologic--normal skin turgor, normal color, no abnormal lymph nodes, no rash. Neurologic--cranial nerves II through XII grossly intact. Rheumatologic--normal range of motion. Psychiatric--normal affect. Results & Data Results & Data Vital Signs (Past 12 Hours) Vital Signs Temp Pulse Pulse Resp BP Pulse Ox O2 Del Method 02/13/23 10:31 98.1 F 64 18 125/78 96 Room Air 02/13/23 09:16 65 02/13/23 07:34 97.7 F 59 L 18 146/89 H 96 Room Air 02/13/23 04:10 97.3 F L 61 20 135/89 97 Room Air PG Care Time/CCT Total # of Minutes Spent Total Time Spent with Patient: Total time spent is greater than 50% in coordination of care (as documented) at patient's floor/unit and/or counseling patient: Coding Level of Care Code 95705 SUB INP/OBS CARE 2/35MIN Diagnoses Hyperosmolar hyperglycemic state (HHS) E11.00 Headache R51.9 Hyponatremia E87.1 JOSE LUIS (acute kidney injury) N17.9 HTN (hypertension) I10 Polyneuropathy G62.9 Metabolic encephalopathy G93.41 Asthma J45.909 Time Spent (min) 35
[2023-02-13] MEDS: CHOLECALCIFEROL 5,000 UNITS 125 MCG TAB PO SCH (12:26)
[2023-02-13] MEDS: ATORVASTATIN 20 MG TAB PO SCH (12:26)
[2023-02-13] MEDS: KETOROLAC TROMETHAMINE 15 MG/ML VIAL IV PRN (17:57)
[2023-02-13] MEDS: ACETAMINOPHEN 500 MG TAB PO PRN (21:06)
[2023-02-13] MEDS: VENLAFAXINE HCL XR 75 MG CAPXR PO SCH (21:10)
[2023-02-13] MEDS ORDERED: NICOTINE 14 MG/24 HR PATCH TD SCH (21:15)
[2023-02-13] MEDS ORDERED: LORazepam 2 MG/1 ML VIAL IV STA (21:26)
[2023-02-13] MEDS: NICOTINE 21 MG/24 HR TDSY TD SCH (22:08)
--- NOTE | 2023-02-13 23:07 | Electrocardiogram Report ---
Test Reason : Blood Pressure : / mmHG Vent. Rate : 084 BPM Atrial Rate : 084 BPM P-R Int : 158 ms QRS Dur : 140 ms QT Int : 420 ms P-R-T Axes : 030 -32 -20 degrees QTc Int : 496 ms Normal sinus rhythm Possible Left atrial enlargement Left axis deviation Right bundle branch block Abnormal ECG When compared with ECG of 01-MAY-2021 17:00, Nonspecific T wave abnormality now evident in Lateral leads Confirmed by Italo Tapia ([id number] on 02/13/2023 11:07:22 PM Referred By: Mian Benitez Confirmed By:Italo Tapia
--- NOTE | 2023-02-14 00:16 | Billing Data ---
Date of Service February 14, 2023 Coding Level of Care Code 18306 INT INP/OBS CARE
[2023-02-14 06:39] LABS: Hematocrit (blood only) 39.9 % (42.0-52.0); Hemoglobin 14.1 g/dl (14.0-18.0); Mean Corpuscular Hgb Conc 35.3 g/dL (32.0-36.0); Mean Corpuscular Volume 93.4 fL (80.0-100.0); Mean Platelet Volume 10.9 fL (9.4-12.4); Platelet Count 217 K/uL (130-400); RDW Coefficient of Variation 11.6 % (11.5-14.5); RDW Standard Deviation 39.3 fL (36.4-46.3); Red Blood Count 4.27 M/uL (4.70-6.10); White Blood Count 7.57 K/ul (4.8-10.8)
[2023-02-14 06:52] LABS: BUN Creatinine Ratio 14.4 (10-20); Calcium 8.6 mg/dl (8.6-10.3); Est GFR (African American) 89.4 ml/min; Est GFR (Non-African American) 77.1 ml/min; Potassium 4.3 mmol/L (3.5-5.1)
[2023-02-14] MEDS: KETOROLAC TROMETHAMINE 15 MG/ML VIAL IV PRN (07:52)
[2023-02-14] MEDS: INSULIN ASPART PER UNIT CHARGE SC SCH (07:56)
[2023-02-14] MEDS: NICOTINE 21 MG/24 HR TDSY TD SCH (09:26)
[2023-02-14] MEDS: amLODIPine BESYLATE 5 MG TAB PO SCH (09:29)
[2023-02-14] MEDS: METOPROLOL TARTRATE 25 MG TAB PO SCH (09:30)
[2023-02-14] MEDS: CHOLECALCIFEROL 5,000 UNITS 125 MCG TAB PO SCH (09:30)
[2023-02-14] MEDS: ATORVASTATIN 20 MG TAB PO SCH (09:30)
[2023-02-14] MEDS: GABAPENTIN 300 MG CAP PO SCH (09:31)
[2023-02-14] MEDS: PANTOprazole 40 MG TAB PO SCH (09:32)
--- NOTE | 2023-02-14 10:31 | Pharmacy Report ---
Pharmacy Glycemic Short Note 2 - Date of Service February 14, 2023 - Glycemic Short BSG Results (Last 24 hours): 02/13/23 02/13/23 02/13/23 11:19 16:18 20:56 Glucose POC Glucose 288 H 97 222 H 02/14/23 02/14/23 05:56 07:12 Glucose 186 H POC Glucose 194 H OUTPATIENT ANTIDIABETIC REGIMEN: * n/a HbA1c: 11.4% (02/11/23) ASSESSMENT: 02/14/23: * Per pharmacist communication, the plan is to discharge the patient on insulin glargine once-daily and metformin po. Patient prefers to take long-acting insulin around [id number] as an outpatient. Will therefore transition patient over to once daily Lantus as inpatient. Slightly lower dose x1 today due to residual effects of PM Lantus yesterday, but OK to not decrease too far considering AM hyperglycemia this AM. Will add overnight check as total Lantus dose today is likely lower than what the patient needs. Will increase to goal 50 units with dinner tomorrow. * Post-prandial BSG with notably decrease at dinner yesterday, but back up again at HS. Will loosen CHO ratio at lunch only, starting today. 02/13/23: * Insulin drip turned itself off early this AM due to BSGs going below goal 92- 106 mg/dl. * Since patient's labs are normal and gap is closed, insulin drip was discontinued this AM. * Novolog ordered using stress of 3. Pre-lunch BSG trended up to 288 mg/dl, so Novolog carb ratio tightened further. * Basal insulin 30 units this AM also ordered using stress of 3. Patient received total 60 units of basal yesterday in addition to the insulin drip and Novolog coverage with meals. * Ordered additional basal dose scale (20-30 units) for HS based on BSG at that time. Background 02/12/23: * OS is a 62 year old male who presented to ED on 02/11/23 w/ complaints of increased weakness over past several days * Found to have BSG > 600 mg/dL, presumed HHS * Insulin infusion and IV fluids initiated - BSGs have trended down (now at goal <300 mg/dL) * IV fluids were appropriately changed to include dextrose once below 300 mg/dL * Diet ordered today with lunch - IV fluids changed to NSS + 20 KCl @100 mL/hr * Will give basal insulin now to hopefully transition insulin infusion PLAN FOR INPATIENT GLYCEMIC CONTROL: * Basal insulin * Lantus 40 units SC today @1130, then 50 units daily@1630 ongoing * Bolus insulin * NovoLog per scale ACHS or Q6hrs while NPO * Goal Range: Low 110 mg/dL - High 140 mg/dL * Correction Factor: 12 mg/dL/unit * Carb ratio: 4 g CHO/unit with breakfast, dinner, bedtime. 6 g CHO/unit with lunch.
[2023-02-14] MEDS ORDERED: LANTUS PER UNIT CHARGE SC ONE (11:30)
[2023-02-14] MEDS ORDERED: INSULIN ASPART PER UNIT CHARGE SC SCH ×2 (11:30→16:30)
--- NOTE | 2023-02-14 12:33 | Discharge Summary ---
Date of Service February 14, 2023 Admission HPI Per Admitting Provider 62 year old male with a past medical history of HTN, asthma, migraines, GERD, TBI presenting with weakness over the past several days. Has felt ill for the past 2 weeks. Has a prior diagnosis of "prediabetes" not on any diabetic medications. He has had increased confusion over the past 5-6 days with balance issues and some possible vision changes. He does have a history of TBI with residual left sided weakness, word recall, vision issues, and memory problems so somewhat challenging to differentiate old vs new symptoms but states that he has been more confused. Was seen in PCP office 02/04 for evaluation of sore throat. Was recommenced to go to ED after that visit for stroke work-up due to possible new confusion, weakness, neurologic symptoms but did not go. EBV panel showed old infx but no acute. Strep at PCP negative. Was seen again at PCP today for sore throat, headache, dizziness and confusion. Does note some mild intermittent abdominal pain around umbilicus without radiation. Denies diarrhea, constipation, blood in stool. Headache is similar to migraines that he has had in past; frontal with radiation to eye/jaw. Notes that he has polyuria and polydipsia. OP blood work showed blood glucose over 1000 with Na= 114. ED Work-up significant for: Blood glucose= 807, RF=303 (corrects to130) , K= 4.7, creatine= 1.33, lactic acid= 1.9. UA with 3+ glucose, 1+ ketones. Bicarb= 25. VBG with normal pH= 7.38. CXR without acute process. Troponin negative, EKG without ischemic change. Started on insulin drip. 2L NS Principal Diagnosis newly diagnosed type [address] [facility] Discharge Exam The patient is awake, alert and oriented 3, well developed and well nourished, normocephalic and atraumatic, lying in bed and in no acute distress. HEENT--PERRL, EOMI, mucous membranes and oropharynx mildly dry Neck--supple. No JVD. No bruits. Thyroid normal, trachea midline, no adenopathy. Heart--normal S1 and S2. No murmurs, rubs or gallops. Lungs--clear bilaterally, no respiratory distress, no accessory muscle use. Abdomen--normal bowel sounds and soft. Mild epigastric and left sided abdominal pain Extremities--no cyanosis or clubbing. No edema. Dermatologic--normal skin turgor, normal color, no abnormal lymph nodes, no rash. Neurologic--cranial nerves II through XII grossly intact. Rheumatologic--normal range of motion. Psychiatric--normal affect. Discharge Data Allergies Allergy/AdvReac Type Severity Reaction Status Date / Time Penicillins Allergy Severe Anaphylaxis Verified 02/11/23 15:48 Consultations 02/11/23 21:16 ED Decision to Admit Stat Ordered Studies 02/11/23 21:58 CT head/brain wo con Stat Hospital Course (1) Hyperosmolar hyperglycemic state (HHS): Patient has a history of prediabetes, presented to his PCP with complaints of headache dizziness and feeling of unwell. He was sent to ER for lab work and found to have a blood glucose of over 800. Found to be in HHS Hemoglobin A1c found to be 11.4 Initially started on IV insulin drip, he has been transitioned to subcu with insulin, glargine 30 units every morning and insulin sliding scale Pharmacy glycemia management on consult Requiring about 50 units of long-acting insulin Has been discharged on 50 minutes of long-acting insulin in the morning with 500 mg twice daily of metformin Has also been urged to follow-up with Dr. Martinez executive coordinator (2) Headache: Headache - Symptoms are consistent with prior migraines that have been trigger by viral illness - started on Effexor for both mood and headache prophylaxis; continue -CT scan of the head did not show any acute pathology -Tylenol 3 (3) Hyponatremia: Much improvement following IV fluids (4) JOSE LUIS (acute kidney injury): JOSE LUIS on CKD - likely prerenal in the setting of dehydration secondary to hyperglycemia - baseline creatine 1.1-1.2 - IVF as per above - continue to trend creatine (5) HTN (hypertension): HTN - Continue amlodipine/metoprolol - Hold lisinopril/HCTZ given JOSE LUIS (6) Polyneuropathy: Polyneuropathy - Continue gabapentin (7) Metabolic encephalopathy: Acute metabolic encephalopathy most likely secondary to hypoglycemia Much improved following improvement in blood glucose. CT scan of the head did not show any acute pathology. (8) Asthma: Plan Diet: Carb controlled diet Dispo: Hopefully discharge when blood glucose under better control. VTE Prophylaxis: SCDs Code: Full Total Time Total Time Spent Total Time Spent (In Minutes): 35 Discharge Plan Discharge Items Patient Disposition: Home - Self-Care Reason For Visit: [facility] Discharge Diagnosis: [facility] Activity: Resume your previous activity Non-emergency contact: Primary Care Provider Call non-emergency contact if: you have any medication questions Follow-up/Referrals: Jason Loya MD [Primary Care Provider] - 02/21/23 3:00 pm (Will see Lucie Boateng PA-C in Dr Loya's office) Martin Briceño PA-C [Physician Care Information Associate] - 05/27/23 3:15 pm Danielle Sierra, RD, LDN, CDE [Registered Dietitian] - 03/13/23 3:00 pm Diet: Carb Consistent or DM2 Addtl Attending Provider Instructions: please make appointment to follow up with Dr Sweeney, Chemistry Technician Pending Studies at Discharge: No Stand-Alone Forms: [employer] Supply Drop, Work/School Release, Smoking Cessation Medications and DC Order Prescriptions: New atorvastatin 20 mg Tablet 20 mg PO QAM 30 Days Qty: 30 0RF cholecalciferol (vitamin D3) 125 mcg (5,000 unit) Tablet 5,000 unit PO QAM 30 Days Qty: 30 0RF insulin glargine-yfgn [Semglee(insulin glarg-yfgn)Pen] 100 unit/mL (3 mL) insulin pen 50 unit subcut DAILY Qty: 15 0RF (DME) pen needle, diabetic 32 gauge x 5/32" needle See Rx Instructions .Route Qty: 1200 0RF Rx Instructions: As directed metformin 500 mg tablet extended release 24 hr 500 mg PO BID Qty: 60 0RF (DME) OneTouch Verio test strips Strip See Rx Instructions .Route Qty: 100 0RF Rx Instructions: As directed (DME) lancets [Onetouch Delica Safety Lancet] 30 gauge misc See Rx Instructions .Route Qty: 100 0RF Rx Instructions: As directed Continued metoprolol tartrate 50 mg tablet 75 mg PO BID 90 Days Qty: 270 3RF lisinopril 40 mg tablet 40 mg PO QAM Qty: 90 3RF amlodipine 10 mg tablet 10 mg PO QAM Qty: 90 3RF hydrochlorothiazide 25 mg tablet 25 mg PO QAM Qty: 90 3RF venlafaxine 75 mg capsule,extended release 24hr 225 mg PO QPM Qty: 270 3RF gabapentin 300 mg capsule 300 mg PO TID Qty: 270 1RF omeprazole 40 mg capsule,delayed release(DR/EC) 40 mg PO QAM Qty: 90 3RF prednisone 10 mg tablets,dose pack 10 mg PO . DIRECTED Qty: 21 0RF Rx Instructions: did not start yet albuterol sulfate [Ventolin HFA] 90 mcg/actuation Hfa Aerosol Inhaler 2 puff INHALATION QID PRN (Reason: Shortness Of Breath) desonide 0.05 % ointment 1 appln TOP BID PRN (Reason: ud) fluocinolone 0.01 % oil 1 appln TOP .COMPLEX PRN (Reason: ud) Rx Instructions: 1 applic TOP APPLY TO SCALP AND LEAVE ON OVERNIGHT DIRECTED; betamethasone dipropionate 0.05 % lotion 1 applic topical DAILY PRN (Reason: Rash) Rx Instructions: Apply to areas of the scalp once daily at bedtime for up to 2 weeks as needed for flaring. Discharge Orders: Discharge Order (Routine); Ordered 02/14/23 Ordered By: Dinh Umanzor Admission Data Admit Date/Time: 02/11/23 21:57 Attending Provider: Dinh Umanzor Admit Provider: Moni Chavez Primary Care Provider: Jason Loya Other Providers: Jovan Hernandez Other Interventions: Discharge Summary Assessment (RN) Last Done: 02/14/23 11:13 Coding Level of Care Code 34522 INP/OBS DISCH >30 MIN Diagnoses Hyperosmolar hyperglycemic state (HHS) E11.00 Headache R51.9 Hyponatremia E87.1 JOSE LUIS (acute kidney injury) N17.9 HTN (hypertension) I10 Polyneuropathy G62.9 Metabolic encephalopathy G93.41 Asthma J45.909 Time Spent (min) 35
[2023-02-15] MEDS ORDERED: INSULIN ASPART PER UNIT CHARGE SC ONE (02:00)
[2023-02-15] MEDS ORDERED: LANTUS PER UNIT CHARGE SC SCH (16:30)
== END 2023-02-14 13:11 | disposition home or self-care (01) | DRG 637 ==
LOC: ED 19:32 → 2S 21:57 → SUATTDRO 21:57 → 2S 23:10